=== PATIENT | female | born 2005 | race Caucasian/White ===

== ENCOUNTER → 2023-04-29 | Emergency (ER) | payer OTHER ==
--- OUTSIDE RECORDS SUMMARY | 2023-04-29 14:44 | XMS REPORT | Continuity of Care Document ---
Author Name Unknown Address [address] [facility] [address] [place] [address] [facility] thconnect Address [address] [facility] [place] [address] Care Team Providers Care Twisting Operator Name Role Phone PCP, PATIENT DOES NOT HAVE A Primary Care Physic law Unavailable Paris Lewis Attending Clinician Unavailable STEVE LABOY Attending Clinician Unavailable PROVIDERRODRICK Attending Clinician Unavailable LAB59 Attending Clinician Unavailable MANSI BARLOW Attending Clinician Unavailable CHARU DOMINGUEZ Attending Clinician Unavailab TRISH Stroud Attending Clinician Unavaila ble Lachelle Jack Attending Clinician + LACHELLE ALVAREZ Attending Clinician Unavail able Madison Leiva Attending Clinician TONY HOGUE Attending Clinician Unavailable [facility], [facility] Ashley sadia Chavezman PNP, Tony Attending Clinician [phone] Doctor Unassigned, [place] Attending Clinician U navailable Mehreen Attending Clinician ANIYA Velásquez Attending Clinician Unavail able Aniya Santiago MD Attending Clinician [phone] Lab, Adc Fam Pob I Attending Clinician Unavailab Summer Ferraro Attending Clinician [phone] Mehreen Admitting Clinician Unavailcheyenne e Payers Payer Name Policy Type Policy Number Effective Date Expiration Date Source [facility] [employer] EMT 9 [id number] 2020 00:00:00 [employer] COMMERCIAL OUT OF NETWORK [id number] 2020 00:00:00 [employer] C1 [id number] 2019 00:00:00 [facility] Problems Condition Name Condition Details Condition Category Status Onset Date Resolution Date Last Treatment Date Treating Clinician Comments Source Family history of breast cancer Family history of breast cancer Disease Active 10-02 00:00: 00 [facility] BMI 38.0-38.9, adult BMI 38.0-38.9, adult Disease Active 10-02 00:00: 00 [facility] Encounter for other contracept vernon management Encounter for other contracept vernon management Disease Active 10-02 00:00: 00 [facility] 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 Disease Active 2019-03 00:00: 00 [facility] Allergies, Adverse Reactions, Alerts Allergy Name Allergy Type Status Severity Reaction(s) Onset Date Inactive Date Treating Clinician Comments Source NO KNOWN ALLERGIE S Drug Class Active [facility] Social History Social Habit Start Date Stop Date Quantity Comments Source Sexual orientation Omid Gould - External Gender identity Mindi Gould - External History of Tobacco Use Never Smoker [facility] Alcohol intake 2023-04-23 00:00:00 2023-04-23 00:00:00 Ex-drinker (finding) Laurie Gould - External Tobacco use and exposure 2022-11-30 00:00:00 2022-11-30 00:00:00 Smokeless tobacco non-user Laurie Gould - External History of Social function 2022-11-30 00:00:00 2022-11-30 00:00:00 Laurie Gould - External Exposure to SARS-CoV-2 (event) 2021-12-23 00:00:00 2022-01-02 13:54:00 Not sure [facility] Sex Assigned At 2005 00:00:00 2005 00:00:00 Laurie Gould - External Smoking Status Start Date Stop Date Source Never smoked tobacco Laurie Gould - External Medications Ordered Medication Name Filled Medication Name Start Date Stop Date Current Medication? Ordering Clinician Indication Dosage Frequency Signature (SIG) Comments Components Source Drospirenon e-Ethinyl Estradiol 3-0.02 MG oral Tablet 04-23 00:00: 00 Yes [id number] 1{tbl} Take 1 tablet by mouth daily. Laurie Gould - Externa l ondansetron (ZOFRAN (PF)) injection 4 mg 2022-03 09:45: 00 03-04 09:33 :00 No 4mg 4 mg, Slow IV Push, ONCE, 1 dose, On Sat03/04/23 at 0345, RAZ [facility] NaCl 0.9% (NS) IV infusion 1,000 mL 2022-03 09:00: 00 Yes 1000mL at 999 mL/hr, IV Infusion, CONTINUOUS , Starting on Sat03/04/23 at 0300, Until Discontinu ed, Routine [facility] cefTRIAXone (ROCEPHIN) 1,000 mg in NaCl 0.9% (NS) 100 mL MINI-BAG 2022-03 08:30: 00 03-04 09:03 :00 No 1000mg 1,000 mg, IV Piggyback, ONCE, 1 dose, On Sat03/04/23 at 0230, Administer over 30 Minutes, 100 mL
Reas on for Anti-Infec tive: Documented Infection< br>Documen radha Infection Site: Urine
D uration of Therapy: 10 days [facility] ondansetron (ZOFRAN (PF)) injection 4 mg 2022-03 08:00: 00 03-04 07:59 :00 No 4mg 4 mg, Slow IV Push, ONCE, 1 dose, On 03/04/23 at 0200, RAZ [facility] ondansetron 4 mg disintegrat ing tablet 2022-03 00:00: 00 Yes [id number] 4mg Take 1 tablet by mouth every 8 (eight) hours as needed for Nausea and Vomiting (N/V) for up to 15 doses. [facility] ciprofloxac in HCl 500 mg tablet 2022-03 00:00: 00 Yes [id number] 500mg Take 1 tablet by mouth in the morning and 1 tablet in the evening. [facility] benzonatate 100 mg capsule 2022-03 00:00: 00 Yes 100mg Take 1 capsule by mouth every 8 (eight) hours as needed. [facility] Benzonatate (Tessalon Perles) 100 MG oral Capsule 2022-03 00:00: 00 Yes [id number] 100mg [id number] 3D Take 1 capsule (100 mg total) by mouth 3 times daily as needed for cough. Laurie pathak Benzonatate (Tessalon Perles) 100 MG oral Capsule 2022-03 00:00: 00 04-23 00:00 :00 No [id number] 100mg Q.[id number] 3D Take 1 capsule (100 mg total) by mouth 3 times daily as needed for cough. Laurie pathak Azithromyci n 250 MG oral Tablet 2022-03 00:00: 00 01-31 05:59 :00 No [id number] Take 2 tablets by mouth on day 1 then 1 tablet by mouth daily for 4 days thereafter .. Laurie pathak drospirenon e-ethinyl estradioL 3-0.02 mg per tablet 11-30 00:00: 00 Yes 1{tbl} Take 1 tablet by mouth every morning. [facility] Drospirenon e-Ethinyl Estradiol 3-0.02 MG oral Tablet 11-30 00:00: 00 Yes [id number] 1{tbl} Take 1 tablet by mouth daily. Laurie Graysondorysta Ely Ducreji pathak Drospirenon e-Ethinyl Estradiol 3-0.02 MG oral Tablet 11-30 00:00: 00 Yes [id number] 1{tbl} Take 1 tablet by mouth daily. Laurie Graysondorysta Ely Ducreji pathak Drospirenon e-Ethinyl Estradiol 3-0.02 MG oral Tablet 11-30 00:00: 00 04-23 00:00 :00 No [id number] 1{tbl} Take 1 tablet by mouth daily. Laurie Luis Fernando pathak norgestimat e-ethinyl estradioL 0.18/0.215/ 0.25 mg-35 mcg (28) tablet 09-18 00:00: 00 Yes [id number] TAKE 1 TABLET BY MOUTH EVERY DAY IN THE MORNING [facility] norgestimat e-ethinyl estradioL 0.18/0.215/ 0.25 mg-35 mcg (28) tablet 09-18 00:00: 00 Yes [id number] TAKE 1 TABLET BY MOUTH EVERY DAY IN THE MORNING [facility] norgestimat e-ethinyl estradioL (TRI-SPRINT EC) 0.18/0.215/ 0.25 mg-35 mcg (28) tablet 09-18 00:00: 00 Yes [id number] 1{tbl} Take 1 tablet by mouth in the morning. [facility] norgestimat e-ethinyl estradioL 0.18/0.215/ 0.25 mg-35 mcg (28) tablet 09-18 00:00: 00 Yes [id number] TAKE 1 TABLET BY MOUTH EVERY DAY IN THE MORNING [facility] norgestimat e-ethinyl estradioL (TRI-SPRINT EC) 0.18/0.215/ 0.25 mg-35 mcg (28) tablet 09-18 00:00: 00 Yes [id number] 1{tbl} Take 1 tablet by mouth in the morning. [facility] norgestimat e-ethinyl estradioL 0.18/0.215/ 0.25 mg-35 mcg (28) tablet 09-18 00:00: 00 03-04 00:00 :00 No [id number] TAKE 1 TABLET BY MOUTH EVERY DAY IN THE MORNING [facility] norgestimat e-ethinyl estradioL (TRI-SPRINT EC) 0.18/0.215/ 0.25 mg-35 mcg (28) tablet 09-18 00:00: 00 03-04 00:00 :00 No [id number] 1{tbl} Take 1 tablet by mouth in the morning. [facility] norgestimat e-ethinyl estradioL (TRI-SPRINT EC) 0.18/0.215/ 0.25 mg-35 mcg (28) tablet 2021-03 00:00: 00 Yes [id number] 1{tbl} Take 1 tablet by mouth in the morning. [facility] norgestimat e-ethinyl estradioL (TRI-SPRINT EC) 0.18/0.215/ 0.25 mg-35 mcg (28) tablet 2021-03 00:00: 00 Yes [id number] 1{tbl} Take 1 tablet by mouth in the morning. [facility] norgestimat e-ethinyl estradioL (TRI-SPRINT EC) 0.18/0.215/ 0.25 mg-35 mcg (28) tablet 2021-03 00:00: 00 Yes [id number] 1{tbl} Take 1 tablet by mouth in the morning. [facility] norgestimat e-ethinyl estradioL (TRI-SPRINT EC) 0.18/0.215/ 0.25 mg-35 mcg (28) tablet 2021-03 00:00: 00 03-04 00:00 :00 No [id number] 1{tbl} Take 1 tablet by mouth in the morning. [facility] Norgestimat e-Ethinyl Estradiol 0.18/0.215/ 0.25 MG-35 MCG oral Tablet 2021-03 00:00: 00 11-30 00:00 :00 No 1{tbl} Take 1 tablet by mouth daily. Laurie pathak norgestimat e-ethinyl estradioL (TRI-SPRINT EC) 0.18/0.215/ 0.25 mg-35 mcg (28) tablet 10-02 00:00: 00 Yes [id number] 1{tbl} Take 1 tablet by mouth in the morning. [facility] norgestimat e-ethinyl estradioL (TRI-SPRINT EC) 0.18/0.215/ 0.25 mg-35 mcg (28) tablet 10-02 00:00: 00 Yes [id number] 1{tbl} Take 1 tablet by mouth in the morning. [facility] norgestimat e-ethinyl estradioL (TRI-SPRINT EC) 0.18/0.215/ 0.25 mg-35 mcg (28) tablet 10-02 00:00: 00 01-02 00:00 :00 No [id number] 1{tbl} Take 1 tablet by mouth in the morning. [facility] norgestimat e-ethinyl estradioL (TRI-SPRINT EC) 0.18/0.215/ 0.25 mg-35 mcg (28) tablet 10-02 00:00: 00 01-02 00:00 :00 No [id number] 1{tbl} Take 1 tablet by mouth in the morning. [facility] bromphenira mine-pseudo ephedrine-D M (BROMFED DM) 2-30-10 mg/5 mL syrup 05-30 00:00: 00 10-02 00:00 :00 No [id number] 10mL Take 10 mL by mouth 4 (four) times daily as needed for Cold symptoms. [facility] bromphenira mine-pseudo ephedrine-D M (BROMFED DM) 2-30-10 mg/5 mL syrup 08 00:00: 00 10-02 00:00 :00 No [id number] 10mL Take 10 mL by mouth 4 (four) times daily as needed for Cold symptoms. [facility] No Known Medications No Known Medications No [facility] No Known Medications No Known Medications No [facility] Vital Signs Vital Name Observation Time Observation Value Comments S ource Systolic blood pressure 2023-04-23 20:04:00 118 mm[Hg] Laurie Seybo ld - External Diastolic blood pressure 2023-04-23 20:04:00 65 mm[Hg] Laurie Graysonybo ld - External Heart rate 2023-04-23 20:04:00 77 /min Kel y Seybold - External Body temperature 2023-04-23 20:04:00 36.78 Ana Laurie Graysonybold - External Respiratory rate 2023-04-23 20:04:00 20 /min Laurie Graysonybold - External Body height 2023-04-23 20:04:00 175.3 cm Mindi pepper Seybold - External Body weight 2023-04-23 20:04:00 119.75 kg Mindi ey Seybold - External BMI 2023-04-23 20:04:00 38.99 kg/m2 Mindi ey Seybold - External Heart rate 2023-03-04 09:00:00 77 /min [facility] Respiratory rate 2023-03-04 09:00:00 27 /min [facility] Oxygen saturation in Arterial blood by Pulse oximetry 2023-03-04 09:00:00 97 /min [facility] Systolic blood pressure 2023-03-04 07:45:00 140 mm[Hg] [facility] Diastolic blood pressure 2023-03-04 07:45:00 73 mm[Hg] [facility] Body temperature 2023-03-04 07:45:00 36.78 Ana [facility] Body height 2023-03-04 07:45:00 172.7 cm [facility] Body weight 2023-03-04 07:45:00 117.935 kg [facility] BMI 2023-03-04 07:45:00 39.53 kg/m2 [facility] Systolic blood pressure 2023-01-25 13:50:00 132 mm[Hg] Laurie Graysonybo ld - External Diastolic blood pressure 2023-01-25 13:50:00 74 mm[Hg] Laurie Graysonybo ld - External Heart rate 2023-01-25 13:50:00 104 /min Kelse y Seybold - External Body temperature 2023-01-25 13:50:00 36.61 Ana Laurie Seybold - External Respiratory rate 2023-01-25 13:50:00 15 /min Laurie Seybold - External Body height 2023-01-25 13:50:00 172.7 cm Mindi ey Seybold - External Body weight 2023-01-25 13:50:00 120.657 kg Mindi ey Seybold - External BMI 2023-01-25 13:50:00 40.45 kg/m2 Mindi ey Seybold - External Body weight 2022-11-30 14:33:00 117.482 kg Mindi ey Seybold - External BMI 2022-11-30 14:33:00 39.38 kg/m2 Mindi ey Seybold - External Systolic blood pressure 2022-11-30 14:33:00 110 mm[Hg] Laurie Seybo ld - External Diastolic blood pressure 2022-11-30 14:33:00 60 mm[Hg] Laurie Graysonybo ld - External Heart rate 2022-11-30 14:33:00 64 /min Junse y Seybold - External Body temperature 2022-11-30 14:33:00 36.72 Ana Laurie Seybold - External Respiratory rate 2022-11-30 14:33:00 16 /min Laurie Seybold - External Body height 2022-11-30 14:33:00 172.7 cm Mindi ey Seybold - External Systolic blood pressure 2022-01-02 18:55:00 144 mm[Hg] [facility] Diastolic blood pressure 2022-01-02 18:55:00 91 mm[Hg] [facility] Heart rate 2022-01-02 18:55:00 112 /min [facility] Body temperature 2022-01-02 18:54:00 36.28 Ana [facility] Respiratory rate 2022-01-02 18:54:00 18 /min [facility] Body height 2022-01-02 18:54:00 172.7 cm [facility] Body weight 2022-01-02 18:54:00 114.477 kg [facility] BMI 2022-01-02 18:54:00 38.37 kg/m2 [facility] Body mass index (BMI) [Percentile] Per age and sex 2022-01-02 18:54:00 98.43 % [facility] Systolic blood pressure 2021-10-02 18:45:00 130 mm[Hg] [facility] Diastolic blood pressure 2021-10-02 18:45:00 67 mm[Hg] [facility] Heart rate 2021-10-02 18:45:00 81 /min [facility] Body temperature 2021-10-02 18:45:00 36.89 Ana [facility] Respiratory rate 2021-10-02 18:45:00 18 /min [facility] Body height 2021-10-02 18:45:00 172.7 cm [facility] Body weight 2021-10-02 18:45:00 114.987 kg [facility] BMI 2021-10-02 18:45:00 38.54 kg/m2 [facility] Body mass index (BMI) [Percentile] Per age and sex 2021-10-02 18:45:00 98.53 % [facility] height 2020-01-15 15:40:00 68 [in_i] Commo n [facility] weight 2020-01-15 15:40:00 216.0 [lb_av] Co mmon [facility] temperature 2020-01-15 15:40:00 97.3 [degF] Com mon [facility] bmi 2020-01-15 15:40:00 32.84 kg/m2 Comm on [facility] oximetry 2020-01-15 15:40:00 99 % Commo n [facility] respiratory rate 2020-01-15 15:40:00 19 /min Common [facility] blood pressure systolic 2020-01-15 15:40:00 124 mm[Hg] Common [facility] blood pressure diastolic 2020-01-15 15:40:00 69 mm[Hg] [facility] height 2019-12-21 10:00:00 68 [in_i] Commo n [facility] weight 2019-12-21 10:00:00 219.2 [lb_av] Co mmon [facility] temperature 2019-12-21 10:00:00 96.3 [degF] Com mon [facility] bmi 2019-12-21 10:00:00 33.33 kg/m2 Comm on [facility] oximetry 2019-12-21 10:00:00 99 % Commo n [facility] respiratory rate 2019-12-21 10:00:00 19 /min [facility] blood pressure systolic 2019-12-21 10:00:00 134 mm[Hg] [facility] blood pressure diastolic 2019-12-21 10:00:00 61 mm[Hg] [facility] Procedures Procedure Date / Time Performed Performing Clinicia n Source COMP. METABOLIC PANEL (25895) 2023-03-04 08:26:00 Mansi Barlow [facility] RAPID STREP SCREEN FOR GROUP A 2023-03-04 08:00:00 Mansi Barlow [facility] RAPID INFLUENZA A/B 2023-03-04 08:00:00 Nancy Barlow [facility] COVID-19 (ID NOW RAPID TESTING) 2023-03-04 08:00:00 Mansi Barlow [facility] CBC WITH DIFF 2023-03-04 07:59:00 Mansi Barlow [facility] URIN[facility]YSIS 2023-03-04 07[facility]59[facility] 2023-03-04 07:57:00 Nancy Barlow [facility] NOTICE OF PRIVACY PRACTICES 2023-03-04 07:42:05 Doctor Unassigned, [place] [facility] CONSENT/REFUSAL FOR DIAGNOSIS AND TREATMENT 2023-03-04 07:40:52 Doctor Unassigned, [place] [facility] POCT TEST 2022-01-02 21:34:00 Bob Alvarez [facility] POCT TEST 2021-10-02 18:51:00 Madison Pike [facility] Encounters Start Date/Time End Date/Time Encounter Type Admission Type Attending [facility] Care Department Encounter ID Source 2021-04-19 12:35:28 Outpatient Debbie, Pairs STLMLC STLC [id number] [facility] 2021-04-19 12:03:36 Outpatient Debbie, [place] STLMLC STLMLC [id number] [facility] 2021-04-19 12:03:13 Outpatient Debbie, [place] STLMLC STLMLC [id number] [facility] 2021-04-19 12:02:43 Outpatient Debbie, [place] STLMLC STLMLC [id number] [facility] 2021-04-19 12:00:57 Outpatient Debbie, [place] STLMLC STLMLC [id number] [facility] 2021-04-19 11:59:50 Outpatient Debbie, [place] STLMLC STLMLC [id number] [facility] 2021-04-19 11:49:30 Outpatient Debbie, [place] [facility]LMLC STLC [id number] [facility] 2023-11-29 11:00:00 2023-11-29 11:00:00 Outpatient STEVE LABOY [id number] Laurie Gould 2023-04-29 14:30:00 2023-04-29 14:30:00 Outpatient RODRICK KULKARNI [id number] Laurie [facility] 2023-04-29 14:25:00 2023-04-29 14:25:00 Outpatient PROVIDER, RODRICK SCHWAB [id number] Laurie [facility] 2023-04-23 15:00:00 2023-04-23 15:00:00 Outpatient LAB59 LAURIE SCHWAB [id number] Laurie [facility] 2023-04-23 14:30:00 2023-04-23 14:30:00 Outpatient STEVE LABOY [id number] Laurie [facility] 2023-03-04 01:46:00 2023-03-04 03:41:00 Emergency X MANSI BARLOW [facility] ERT [id number] [facility] 2023-03-04 01:46:00 2023-03-04 03:41:00 Emergency Maryann Barlowherine [facility] .2.840.114 350.1.13.10 4.2.7.2.686 [id number] [facility] 2023-01-28 00:00:00 2023-01-28 00:00:00 Outpatient CHARU DOMINGUEZ [id number] [facility] 2023-01-25 09:00:00 2023-01-25 09:00:00 Outpatient CHARU DOMINGUEZ [id number] [facility] 2022-12-26 13:00:00 2022-12-26 13:00:00 Outpatient TRISH FAULKNER [facility] [id number] [facility] 2022-11-30 09:30:00 2022-11-30 09:30:00 Outpatient STEVE LABOY [id number] [facility] 2022-10-16 00:00:00 2022-10-16 00:00:00 Refill Lachelle Alvarez [facility] .2.840.114 350.1.13.10 4.2.7.2.686 [id number] [facility] 2022-10-02 09:30:00 2022-10-02 09:30:00 Outpatient R LACHELLE ALVAREZ [facility] [id number] [facility] 2022-04-17 14:36:44 2022-04-17 14:36:44 Outpatient [facility] [id number] Edmond Bell 2022-01-02 13:45:00 2022-01-02 14:21:18 Outpatient R LACHELLE ALVAREZ [facility] [id number] [facility] 2022-01-02 13:45:00 2022-01-02 14:21:18 Office Visit Lachelle Alvarez [facility] & CHILD [facility] 1..840.114 350.1.13.10 4.2.7.2.686 [id number] [facility] 2021-12-23 00:00:00 2021-12-23 00:00:00 Madison eRne [facility]ILD [facility] 1..840.114 350.1.13.10 4.2.7.2.686 [id number] [facility] 2021-10-02 13:30:00 2021-10-02 14:42:16 Outpatient R TONY HOGUE [facility] [id number] [facility] 2021-10-02 13:30:00 2021-10-02 14:42:16 Office Visit Provider, Tato-Rmchp Tony Hawkins [facility]NAL [facility] CHILD [facility] 1..840.114 350.1.13.10 4.2.7.2.686 [id number] [facility] 2021-10-02 13:30:00 2021-10-02 14:42:16 Outpatient R TONY HOGUE [facility] [id number] [facility] 2021-10-02 00:00:00 2021-10-02 00:00:00 Orders Only Doctor Unassigned, [place] [facility] 1.2.840.114 350.1.13.10 4.2.7.2.686 [id number] [facility] 2021-08-30 02:21:00 2021-08-30 02:21:00 Outpatient JUDD_Joshua_Greg Carmona AO AO [id number] [facility] 2021-05-30 13:40:00 2021-05-30 14:02:34 Outpatient R ANIYA SANTIAGO [facility] [id number] [facility] 2021-05-30 13:40:00 2021-05-30 14:02:34 Office Visit Aniya Santiago [facility] 1.2840.114 350.1.13.10 4.2.7.2.686 [id number] [facility] 2021-05-30 00:00:00 2021-05-30 00:00:00 Orders Only Doctor Unassigned, [place] [facility] 1.2.840.114 350.1.13.10 4.2.7.2.686 [id number] [facility] 2021-05-30 00:00:00 2021-05-30 00:00:00 Letter (Out) Aniya Santiago [facility] 1.2840.114 350.1.13.10 4.2.7.2.686 [id number] [facility] 2020-02-02 00:00:00 2020-02-02 00:00:00 [facility] [id number] 2020-01-15 00:00:00 2020-01-15 00:00:00 OFFICE VISIT EST PT [facility] [id number] [facility] 2019-12-31 00:00:00 2019-12-31 00:00:00 (TEL) [facility] [id number] [facility] 2019-12-23 00:00:00 2019-12-23 00:00:00 (TEL) ST[facility]C [facility] [id number] [facility] 2019-12-21 00:00:00 2019-12-21 00:00:00 OFFICE VISIT NEW PT LEVEL 3 [facility] ST[facility] [id number] [facility] 2019-09-25 10:40:00 2019-09-25 10:40:00 Outpatient R [facility] [id number] [facility] 2019-09-25 10:12:37 2019-09-25 10:32:37 Laboratory Only Lab, [facility] Fam Pob I MariyaSummer [facility] [address] 1.114 350.1.13.10 4.2.7.2.686 [id number] [facility] 2019-09-25 10:12:37 2019-09-25 10:32:37 Laboratory Only Lab, Adc Fam Pob I [facility] [address] 1.0.114 350.1.13.10 4.2.7.2.686 [id number] Results Test Description Test Time Test Comments Results Result Co mments Source [facility] WITH [id number] 08:42:11* Test Item Value Reference Range Interpretation Comme nts WBC (test code = 6690-2) 27.53 See_Comment H [Automated message] The system which generated this result transmitted reference range: 4.30 - 11.10 10*3/?L. The reference range was not used to interpret this result as normal/abnormal. RBC (test code = 789-8) 5.84 See_Comment H [Automated message] The system which generated this result transmitted reference range: 3.93 - 5.25 10*6/?L. The reference range was not used to interpret this result as normal/abnormal. HGB (test code = 718-7) 16.1 g/dL 11.6-15.0 H HCT (test code = 4544-3) 48.7 % 35.7-45.2 H MCV (test code = 787-2) 83.4 fL 80.6-95.5 MCH (test code = 785-6) 27.6 pg 25.9-32.8 MCHC (test code = 786-4) 33.1 g/dL 31.6-35.1 RDW-SD (test code = 06798-8) 40.1 fL 39.0-49.9 RDW-CV (test code = 788-0) 13.3 % 12.0-15.5 PLT (test code = 777-3) 331 See_Comment [Automated message] The system which generated this result transmitted reference range: 166 - 358 10*3/?L. The reference range was not used to interpret this result as normal/abnormal. MPV (test code = 57417-0) 10.9 fL 9.5-12.9 NRBC/100 WBC (test code = 8660858153) 0.0 See_Comment [Automated message] The system which generated this result transmitted reference range: 0.0 - 10.0 /100 WBCs. The reference range was not used to interpret this result as normal/abnormal. NRBC x10^3 (test code = 2409921147) See_Comment [Automated message] The system which generated this result transmitted reference range: 10*3/?L. The reference range was not used to interpret this result as normal/abnormal. GRAN MAT (NEUT) % (test code = 770-8) 90.0 % IMM GRAN % (test code = 4748949901) 0.70 % LYMPH % (test code = 736-9) 2.9 % MONO % (test code = 5905-5) 6.0 % EOS % (test code = 713-8) 0.1 % BASO % (test code = 706-2) 0.3 % GRAN MAT x10^3(ANC) (test code = 5011930235) 24.76 10*3/uL 1.88-7.09 H IMM GRAN x10^3 (test code = 4658317811) 0.20 10*3/uL 0.00-0.06 H LYMPH x10^3 (test code = 731-0) 0.80 10*3/uL 1.32-3.29 L MONO x10^3 (test code = 742-7) 1.65 10*3/uL 0.33-0.92 H EOS x10^3 (test code = 711-2) 0.04 10*3/uL 0.03-0.39 BASO x10^3 (test code = 704-7) 0.08 10*3/uL 0.01-0.07 H BANDS (test code = 2010633272) Increased A Lab Interpretation (test code = 26054-0) Abnormal [facility] [id number] 07:57:00* Test Item Value Reference Range Interpretation Comme nts POCT PREG (test code = 1605) Negative On board controls acceptable with C Line (test code = 3574) Yes POCT PREG LOT # (test code = 3575) [id number] POCT PREG TEST DATE ( test code = 3576) 06/02/2024 Lab Interpretation (test cod e = 58453-0) Normal [facility] [id number] 21:34:00* Test Item Value Reference Range Interpretation Comme nts POCT PREG (test code = 1605) Negative On board controls acceptable with C Line (test code = 3574) Yes POCT PREG LOT # (test code = 3575) POCT PREG TEST DATE ( test code = 3576) [facility] [id number] 21:34:00* Test Item Value Reference Range Interpretation Comme nts POCT PREG (test code = 1605) Negative On board controls acceptable with C Line (test code = 3574) Yes POCT PREG LOT # (test code = 3575) POCT PREG TEST DATE ( test code = 3576) [facility] [id number] 18:51:00* Test Item Value Reference Range Interpretation Comme nts POCT PREG (test code = 1605) Negative On board controls acceptable with C Line (test code = 3574) Yes POCT PREG LOT # (test code = 3575) POCT PREG TEST DATE ( test code = 3576) [facility] [id number] 18:51:00* Test Item Value Reference Range Interpretation Comme nts POCT PREG (test code = 1605) Negative On board controls acceptable with C Line (test code = 3574) Yes POCT PREG LOT # (test code = 3575) POCT PREG TEST DATE ( test code = 3576) [facility] Notes Date/Time Note Provider Source 2023-04-23 13:59:56 5GRZUse5YcOHjjtF9D3T d9bGqUyCEYB23LyIP XkCgPfahykBS1oemQV0ES3w7AuR0212-46-54 T13:59:56 Chief ComplaintPatient [place] [address]-9Xjjed TowlYR4603-49-21E44:00:00Nurse NoteTXT1.2.840.877627.1.13.131.2.7.2. [id number] for patient xwye29425-1Jyxhd NoteLNNARRATIVEFormatted C-CDA narrative [facility] [facility] [id number] 2241-17-95H50:00:001.2.840.597180.1.7 2.3.15|1.2.840.577935.1.13.131.2.7.2. [id number] [facility] 2022-11-30 09:31:22 yGupeNoWgT4CDMaJs5rd 98MCAlG1zBQutqEza TAe9+o5tHtitUiXArOSYBvM9VLA9035-19-37 T09:31:22 Chief Complaint Patient presents with Well Woman Exam [place] [address]-6Ivuym GpncEQ3892-02-55Q90:00:12Nurse NoteTXT1.2.840.052388.1.13.131.2.7.2. [id number] for patient ynjn21883-9Dscqa NoteLNAscension [facility] [facility].[id number] 9923-23-23Z95:00:121.2.840.554019.1.7 2.3.15|1.2.840.117067.1.13.131.2.7.2. [id number] [facility]"
--- NOTE | 2023-04-29 15:46 | EDPHYS ---
Physician Documentation [facility] Name: Taryn Azul Age: 17 yrs Sex: Female : 2005 Arrival Date: 04/29/2023 Time: 14:40 Bed Treatment Private MD: ED Physician Stevie Isbell HPI: 04/29 14:53 This 17 yrs old Female presents to ER via Unassigned with complaints of Test. ms3 14:53 17-year-old female with no past medical history presents to the emergency for being 5 ms3 days late on her cycle. Patient states she took 2 tests at home with positive faint lines. Patient went to a free clinic and had a negative test. Patient denies pain. Patient endorses fatigue. 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 - Social history:: Smoking status: Patient denies any tobacco usage or history of. ROS: 14:53 Cardiovascular: Negative for chest pain, and palpitations. Respiratory: Negative for ms3 shortness of breath, cough, wheezing, and pleuritic chest pain, Abdomen/GI: Negative for abdominal pain, nausea, vomiting, diarrhea, and constipation, MS/Extremity: Negative for injury and deformity, Skin: Negative for injury, rash, and discoloration, 14:53 Constitutional: Positive for fatigue, 14:53 All other systems are negative, Exam: 14:53 Constitutional: This is a well developed, well nourished patient who is awake, alert, ms3 and in no acute distress. Head/Face: Normocephalic, atraumatic. Chest/axilla: Normal chest wall appearance and motion. Nontender with no deformity. Cardiovascular: Regular rate and rhythm with a normal S1 and S2. No gallops, murmurs, or rubs. Normal PMI, no JVD. No pulse deficits. Respiratory: Lungs have equal breath sounds bilaterally, clear to auscultation and percussion. No rales, rhonchi or wheezes noted. No increased work of breathing, no retractions or nasal flaring. Abdomen/GI: Soft, non-tender, with normal bowel sounds. No distension or tympany. No guarding or rebound. No evidence of tenderness throughout. Skin: Warm, dry with normal turgor. Normal color with no rashes, no lesions, and no evidence of cellulitis. MS/ Extremity: Pulses equal, no cyanosis. Neurovascular intact. Full, normal range of motion. Vital Signs: 14:49 BP 130 / 70; Pulse 103; Resp 18; Temp 98.2; Pulse Ox 98% ; ko1 MDM: 14:53 Differential Diagnosis . ms3 15:10 Patient medically screened. ms3 15:45 Data reviewed: vital signs, nurses notes, lab test result(s), and as a result, I will ms3 discharge patient. Counseling: I had a detailed discussion with the patient and/or guardian regarding the historical points, exam findings, and any diagnostic results supporting the discharge/admit diagnosis, lab results, the need for outpatient follow up, to return to the emergency department if symptoms worsen or persist or if there are any questions or concerns that arise at home. Special discussion: I discussed with the patient/guardian in detail that at this point there is no indication for admission to the hospital. It is understood, however, that if the symptoms persist or worsen the patient needs to return immediately for re-evaluation. ED course: Discussed negative serum test with patient. Discussed hCG levels may be too low for detection at this time. Recommended patient take urine test at home in 1 week. Patient understands agrees with plan. All questions were answered. Return precautions discussed include worsening symptoms, or any other concerns. 04/29 14:53 Order name: Test, Serum; Complete Time: 15:45 ms3 Administered Medications: No medications were administered Disposition Summary: 04/29/23 15:45 Discharge Ordered Notes: Location: Home ms3 Condition: Stable ms3 Diagnosis - Amenorrhea, unspecified ms3 Forms: - Medication Reconciliation Form ms3 - Thank You Letter ms3 - Antibiotic Education ms3 - Prescription Opioid Use ms3 - Patient Portal Instructions ms3 - Leadership Thank You Letter ms3 Signatures: [facility] Stevie Isbell DO DO ms3 Ava Cameron RN RN ko1
--- NOTE | 2023-04-29 15:46 | ER ---
Nurse's Notes [facility] Name: Taryn Azul Age: 17 yrs Sex: Female : 2005 Arrival Date: 04/29/2023 Time: 14:40 Bed Treatment Private MD: Diagnosis: Amenorrhea, unspecified Presentation: 04/29 14:49 Chief complaint: Patient states: 5 days late on menstrual cycle, had 2 home preg tests ko1 which showed a faint line and a urine done [facility] which was negative. Coronavirus screen: At this time, the client does not indicate any symptoms associated with coronavirus-19. Ebola Screen: No symptoms or risks identified at this time. Initial Sepsis Screen: Does the patient meet any 2 criteria? No. Patient's initial sepsis screen is negative. Does the patient have a suspected source of infection? No. Patient's initial sepsis screen is negative. Risk Assessment: Do you want to hurt yourself or someone else? Patient reports no desire to harm self or others. Onset of symptoms is unknown. 14:49 Method Of Arrival: Ambulatory ko1 14:49 Acuity: ROMERO 5 ko1 Triage Assessment: 14:55 General: Appears in no apparent distress. Behavior is calm, cooperative, appropriate ko1 for age. Pain: Denies pain. 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 - Social history:: Smoking status: Patient denies any tobacco usage or history of. Screenin:04 [facility] ED Fall Risk Assessment (Adult) History of falling in the last 3 months, mb9 including since admission No falls in past 3 months (0 pts) Confusion or Disorientation No (0 pts) Intoxicated or Sedated No (0 pts) Impaired Gait No (0 pts) Mobility Assist Device Used No (0 pt) Altered Elimination No (0 pt) Score/Fall Risk Level 0 - 2 = Low Risk Oriented to surroundings, Maintained a safe environment, Educated pt \T\ family on fall prevention, incl call for assistance when getting out of bed. Abuse screen: Denies threats or abuse. Nutritional screening: No deficits noted. Tuberculosis screening: No symptoms or risk factors identified. Assessment: 15:03 General: Appears in no apparent distress. Behavior is calm, cooperative. Pain: Denies mb9 pain. Neuro: [place] Agitation-Sedation Scale (RASS): 0 - Alert and Calm Level of Consciousness is awake, alert, obeys commands, Oriented to person, place, time, situation, Appropriate for age. Cardiovascular: Patient's skin is warm and dry. Respiratory: Airway is patent Respiratory effort is even, unlabored, Respiratory pattern is regular, symmetrical. GI: No signs and/or symptoms were reported involving the gastrointestinal system. : No signs and/or symptoms were reported regarding the genitourinary system. EENT: No signs and/or symptoms were reported regarding the EENT system. Derm: Skin is pink, warm \T\ dry. Musculoskeletal: Range of motion: intact in all extremities. Vital Signs: 14:49 BP 130 / 70; Pulse 103; Resp 18; Temp 98.2; Pulse Ox 98% ; ko1 ED Course: 14:41 Patient arrived in ED. rg4 14:44 Stevie Isbell DO is Attending Physician. ms3 14:55 Triage completed. ko1 14:55 Arm band placed on right wrist. Patient placed in waiting room, Patient notified of ko1 wait time. 15:03 Georgiana Daniel, BETINA is Primary Nurse. mb9 15:03 Test, Serum Sent. mb9 15:04 Placed in gown. Bed in low position. Call light in reach. Side rails up X 1. Client mb9 placed on continuous cardiac and pulse oximetry monitoring. NIBP monitoring applied. 15:04 No provider procedures requiring assistance completed. Patient did not have IV access mb9 during this emergency room visit. Administered Medications: No medications were administered Medication: 15:04 VIS not applicable for this client. mb9 Outcome: 15:45 Discharge ordered by . ms3 15:53 Discharged to home ambulatory, mb9 15:53 Condition: stable 15:53 Discharge instructions given to patient, Instructed on discharge instructions, follow up and referral plans. Demonstrated understanding of instructions, follow-up care, 15:53 Patient left the ED. mb9 Signatures: Kailee De Jesus rg4 Stevie Isbell DO DO ms3 Ava Cameron RN RN ko1 Breneman, Olamide, RN RN mb9
[2023-04-30 00:46] VITALS: BP 130/70; TEMP 98.2; O2SAT 98
== END ==
LOC: ER 14:40
DX: N91.2 Amenorrhea, unspecified (principal); R53.83 Other fatigue
CPT/HCPCS: 36415; 84703

== ENCOUNTER 2023-08-27 11:09 | Emergency (ER) | payer OTHER ==
--- OUTSIDE RECORDS SUMMARY | 2023-08-27 11:12 | XMS REPORT | Continuity of Care Document ---
Author Name Unknown Address [address] [facility] [address] [place] [address] [facility] thconnect Address [address] [facility] [place] [address] Care Team Providers Care Manager Unix Name Role Phone PCP, PATIENT DOES NOT HAVE A Primary Care Physic law Unavailable Paris Lewis Attending Clinician Unavailable STEVE LABOY Attending Clinician Unavailable KATHI MARCH Attending Clinician Unavailable PROVIDERRODRICK Attending Clinician Unavailable LAB59 Attending Clinician Unavailable MANSI BRALOW Attending Clinician Unavailable CHARU DOMINGUEZ Attending Clinician Unavailab TRISH Stroud Attending Clinician Unavaila Lachelle Hanson Attending Clinician + LACHELLE ALVAREZ Attending Clinician Unavail able Madison Leiva Attending Clinician [phone] TONY HOGUE Attending Clinician Unavailable Provider, Tato-Rmchirish Temp Attending Clinician Ashley CUTLER, Tony Attending Clinician [phone] Doctor Unassigned, [place] Attending Clinician U navailable Mehreen Attending Clinician ANIYA Velásquez Attending Clinician Unavail able Aniya Martines MD Attending Clinician [phone] Lab, Adc Fam Pob I Attending Clinician Unavailab Summer Ferraro Attending Clinician [phone] Mehreen Admitting Clinician Unavailabl e Payers Payer Name Policy Type Policy Number Effective Date Expiration Date Source [facility] [employer] EMT 9 [id number] 2020 00:00:00 [employer] COMMERCIAL OUT OF NETWORK [id number] 2020 00:00:00 [employer] C1 [id number] 2019 00:00:00 [facility] Problems Condition Name Condition Details Condition Category Status Onset Date Resolution Date Last Treatment Date Treating Clinician Comments Source Family history of breast cancer Family history of breast cancer Disease Active 10-02 00:00: 00 [facility] BMI 38.0-38.9, adult BMI 38.0-38.9, adult Disease Active 10-02 00:00: 00 [facility] Encounter for other contracept vernon management Encounter for other contracept vernon management Disease Active 10-02 00:00: 00 [facility] 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 Disease Active 2019-03 00:00: 00 [facility] Allergies, Adverse Reactions, Alerts Allergy Name Allergy Type Status Severity Reaction(s) Onset Date Inactive Date Treating Clinician Comments Source NO KNOWN ALLERGIE S Drug Class Active [facility] Social History Social Habit Start Date Stop Date Quantity Comments Source History of Tobacco Use Never Smoker [facility] Sexual orientation Omid Gould - External Gender identity Mindi Gould - External Alcohol intake 2023-04-23 00:00:00 2023-04-23 00:00:00 Ex-drinker (finding) Laurie Gould - External Tobacco use and exposure 2022-11-30 00:00:00 2022-11-30 00:00:00 Smokeless tobacco non-user Laurie Gould - External History of Social function 2022-11-30 00:00:00 2022-11-30 00:00:00 Laurie Gould - External Exposure to SARS-CoV-2 (event) 2021-12-23 00:00:00 2022-01-02 13:54:00 Not sure [facility] Sex Assigned At 2003 00:00:00 2005 00:00:00 Laurie Gould - External Smoking Status Start Date Stop Date Source Never smoked tobacco Laurie Gould - External Medications Ordered Medication Name Filled Medication Name Start Date Stop Date Current Medication? Ordering Clinician Indication Dosage Frequency Signature (SIG) Comments Components Source Naproxen (Naprosyn) 500 MG oral Tablet 04-29 00:00: 00 Yes [id number] 500mg Take 1 tablet (500 mg total) by mouth in the morning and 1 tablet (500 mg total) in the evening. Take with meals. Laurie pathak Baclofen 10 MG oral Tablet 04-29 00:00: 00 Yes [id number] 10mg Take 1 tablet (10 mg total) by mouth 3 times daily. Laurie pathak Drospirenon e-Ethinyl Estradiol 3-0.02 MG oral Tablet 04-23 00:00: 00 Yes [id number] 1{tbl} Take 1 tablet by mouth daily. Laurie pathak ondansetron (ZOFRAN (PF)) injection 4 mg 2022-03 09:45: 00 03-04 09:33 :00 No 4mg 4 mg, Slow IV Push, ONCE, 1 dose, On Sat03/04/23 at 0345, RAZ [facility] NaCl 0.9% (NS) IV infusion 1,000 mL 2022-03 09:00: 00 Yes 1000mL at 999 mL/hr, IV Infusion, CONTINUOUS , Starting on Sat03/04/23 at 0300, Until Discontinu ed, Routine [facility] cefTRIAXone (ROCEPHIN) 1,000 mg in NaCl 0.9% (NS) 100 mL MINI-BAG 2022-03 08:30: 00 03-04 09:03 :00 No 1000mg 1,000 mg, IV Piggyback, ONCE, 1 dose, On Sat03/04/23 at 0230, Administer over 30 Minutes, 100 mL
Reas on for Anti-Infec tive: Documented Infection< br>Documen radha Infection Site: Urine
D uration of Therapy: 10 days [facility] ondansetron (ZOFRAN (PF)) injection 4 mg 2022-03 08:00: 00 03-04 07:59 :00 No 4mg 4 mg, Slow IV Push, ONCE, 1 dose, On Sat03/04/23 at 0200, RAZ [facility] ondansetron 4 mg disintegrat ing tablet 2022-03 00:00: 00 Yes [id number] 4mg Take 1 tablet by mouth every 8 (eight) hours as needed for Nausea and Vomiting (N/V) for up to 15 doses. [facility] ciprofloxac in HCl 500 mg tablet 2022-03 00:00: 00 Yes [id number] 500mg Take 1 tablet by mouth in the morning and 1 tablet in the evening. [facility] benzonatate 100 mg capsule 2022-03 00:00: 00 Yes 100mg Take 1 capsule by mouth every 8 (eight) hours as needed. [facility] Azithromyci n 250 MG oral Tablet 2022-03 00:00: 00 01-31 05:59 :00 No [id number] Take 2 tablets by mouth on day 1 then 1 tablet by mouth daily for 4 days thereafter .. Laurie pathak drospirenon e-ethinyl estradioL 3-0.02 mg per tablet 11-30 00:00: 00 Yes 1{tbl} Take 1 tablet by mouth every morning. [facility] Drospirenon e-Ethinyl Estradiol 3-0.02 MG oral Tablet 9-08 00:00: 00 04-23 00:00 :00 No [id number] 1{tbl} Take 1 tablet by mouth daily. Laurie pathak norgestimat e-ethinyl estradioL (TRI-SPRINT EC) 0.18/0.215/ 0.25 mg-35 mcg (28) tablet 6-27 00:00: 00 03-04 00:00 :00 No [id number] 1{tbl} Take 1 tablet by mouth in the morning. [facility] norgestimat e-ethinyl estradioL (TRI-SPRINT EC) 0.18/0.215/ 0.25 mg-35 mcg (28) tablet 2021-03 0- 00:00: 00 03-04 00:00 :00 No [id number] 1{tbl} Take 1 tablet by mouth in the morning. [facility] norgestimat e-ethinyl estradioL (TRI-SPRINT EC) 0.18/0.215/ 0.25 mg-35 mcg (28) tablet 7-11 00:00: 00 01-02 00:00 :00 No [id number] 1{tbl} Take 1 tablet by mouth in the morning. [facility] bromphenira mine-pseudo ephedrine-D M (BROMFED DM) 2-30-10 mg/5 mL syrup 3-08 00:00: 00 10-02 00:00 :00 No [id number] 10mL Take 10 mL by mouth 4 (four) times daily as needed for Cold symptoms. [facility] No Known Medications No Known Medications No [facility] No Known Medications No Known Medications No [facility] Vital Signs Vital Name Observation Time Observation Value Comments S linda Systolic blood pressure 2023-04-23 20:04:00 118 mm[Hg] Laurie paredes - External Diastolic blood pressure 2023-04-23 20:04:00 65 mm[Hg] Laurie paredes - External Heart rate 2023-04-23 20:04:00 77 /min Junse y Seybold - External Body temperature 2023-04-23 20:04:00 36.78 Ana Laurie Seybold - External Respiratory rate 2023-04-23 20:04:00 20 /min Laurie Seybold - External Body height 2023-04-23 20:04:00 175.3 cm Mindi ey Seybold - External Body weight 2023-04-23 20:04:00 119.75 kg Mindi ey Seybold - External BMI 2023-04-23 20:04:00 38.99 kg/m2 Mindi ey Seybold - External Heart rate 2023-03-04 09:00:00 77 /min [facility] Respiratory rate 2023-03-04 09:00:00 27 /min [facility] Oxygen saturation in Arterial blood by Pulse oximetry 2023-03-04 09:00:00 97 /min [facility] Systolic blood pressure 2023-03-04 07:45:00 140 mm[Hg] [facility] Diastolic blood pressure 2023-03-04 07:45:00 73 mm[Hg] [facility] Body temperature 2023-03-04 07:45:00 36.78 Ana [facility] Body height 2023-03-04 07:45:00 172.7 cm [facility] Body weight 2023-03-04 07:45:00 117.935 kg [facility] BMI 2023-03-04 07:45:00 39.53 kg/m2 [facility] Systolic blood pressure 2023-01-25 13:50:00 132 mm[Hg] Laurie Graysonybo ld - External Diastolic blood pressure 2023-01-25 13:50:00 74 mm[Hg] Laurie ybo ld - External Heart rate 2023-01-25 13:50:00 [...] 40.45 kg/m2 Mindi ey Seybold - External Systolic blood pressure 2022-11-30 14:33:00 110 mm[Hg] Laurie Graysonybo ld - External Diastolic blood pressure 2022-11-30 14:33:00 60 mm[Hg] Laurie Seybo ld - External Heart rate 2022-11-30 14:33:00 64 /min Annika y Seybold - External Body temperature 2022-11-30 14:33:00 36.72 Ana Laurie Seybold - External Respiratory rate 2022-11-30 14:33:00 16 /min Laurie Seybold - External Body height 2022-11-30 14:33:00 172.7 cm Mindi ey Seybold - External Body weight 2022-11-30 14:33:00 117.482 kg Mindi ey Seybold - External BMI 2022-11-30 14:33:00 39.38 kg/m2 Mindi ey Seybold - External Systolic blood pressure 2022-01-02 18:55:00 144 mm[Hg] [facility] Diastolic blood pressure 2022-01-02 18:55:00 91 mm[Hg] [facility] Heart rate 2022-01-02 18:55:00 112 /min [facility] Body temperature 2022-01-02 18:54:00 36.28 Ana [facility] Respiratory rate 2022-01-02 18:54:00 18 /min [facility] Body height 2022-01-02 18:54:00 172.7 cm [facility] Body weight 2022-01-02 18:54:00 114.477 kg [facility] BMI 2022-01-02 18:54:00 38.37 kg/m2 [facility] Body mass index (BMI) [Percentile] Per age and sex 2022-01-02 18:54:00 98.43 % [facility] Systolic blood pressure 2021-10-02 18:45:00 130 mm[Hg] [facility] Diastolic blood pressure 2021-10-02 18:45:00 67 mm[Hg] [facility] Heart rate 2021-10-02 18:45:00 81 /min [facility] Body temperature 2021-10-02 18:45:00 36.89 Ana [facility] Respiratory rate 2021-10-02 18:45:00 18 /min [facility] Body height 2021-10-02 18:45:00 172.7 cm [facility] Body weight 2021-10-02 18:45:00 114.987 kg [facility] BMI 2021-10-02 18:45:00 38.54 kg/m2 [facility] Body mass index (BMI) [Percentile] Per age and sex 2021-10-02 18:45:00 98.53 % [facility] height 2020-01-15 15:40:00 68 [in_i] Commo n [facility] weight 2020-01-15 15:40:00 216.0 [lb_av] Co mmon [facility] temperature 2020-01-15 15:40:00 97.3 [degF] Com mon [facility] bmi 2020-01-15 15:40:00 32.84 kg/m2 Comm on [facility] oximetry 2020-01-15 15:40:00 99 % [facility] respiratory rate 2020-01-15 15:40:00 19 /min [facility] blood pressure systolic 2020-01-15 15:40:00 124 mm[Hg] Common [facility] blood pressure diastolic 2020-01-15 15:40:00 69 mm[Hg] Common [facility] height 2019-12-21 10:00:00 68 [in_i] Commo n [facility] weight 2019-12-21 10:00:00 219.2 [lb_av] Co mmon [facility] temperature 2019-12-21 10:00:00 96.3 [degF] Com mon [facility] bmi 2019-12-21 10:00:00 33.33 kg/m2 Comm on [facility] oximetry 2019-12-21 10:00:00 99 % Commo n [facility] respiratory rate 2019-12-21 10:00:00 19 /min [facility] blood pressure systolic 2019-12-21 10:00:00 134 mm[Hg] [facility] blood pressure diastolic 2019-12-21 10:00:00 61 mm[Hg] [facility] Procedures Procedure Date / Time Performed Performing Clinicia n Source COMP. METABOLIC PANEL (85948) 2023-03-04 08:26:00 Mansi Barlow [facility] RAPID STREP SCREEN FOR GROUP A 2023-03-04 08:00:00 Mansi Barlow [facility] RAPID INFLUENZA A/B 2023-03-04 08:00:00 Nancy Barlow [facility] COVID-19 (ID NOW RAPID TESTING) 2023-03-04 08:00:00 Mansi Barlow [facility] CBC WITH DIFF 2023-03-04 07:59:00 Mansi Barlow [facility] URINALYSIS 2023-03-04 07:59[facility] 2023-03-04 07:57:00 Nancy Barlow [facility] NOTICE OF PRIVACY PRACTICES 2023-03-04 07:42:05 Doctor Unassigned, [place] [facility] CONSENT/REFUSAL FOR DIAGNOSIS AND TREATMENT 2023-03-04 07:40:52 Doctor Unassigned, [place] [facility] POCT TEST 2022-01-02 21:34:00 Bob Alvarez [facility] POCT TEST 2021-10-02 18:51:00 Madison Pike [facility] Encounters Start Date/Time End Date/Time Encounter Type Admission Type Attending Clinicians Care Facility Care Department Encounter ID Source 2021-04-19 12:35:28 Outpatient Paris Lewis STLMLC STLMLC [id number] [facility] 2021-04-19 12:03:36 Outpatient DebbiePaz álvarezli STLMLC STLMLC [id number] [facility] 2021-04-19 12:03:13 Outpatient DebbiePaz álvarezli STLMLC STLMLC [id number] [facility] 2021-04-19 12:02:43 Outpatient DebbieParis álvarez STLMLC STLMLC [id number] [facility] 2021-04-19 12:00:57 Outpatient DebbieParis álvarez STLMLC STLMLC [id number] [facility] 2021-04-19 11:59:50 Outpatient Paris Lewis STLMLC STLMLC [id number] [facility] 2021-04-19 11:49:30 Outpatient Paris Lewis STLMLC STLMLC [id number] [facility] 2023-11-29 11:00:00 2023-11-29 11:00:00 Outpatient STEVE LABOY [id number] [facility] 2023-04-29 14:30:00 2023-04-29 14:30:00 Outpatient KATHI MARCH [id number] [facility] 2023-04-29 14:25:00 2023-04-29 14:25:00 Outpatient RODRICK KULKARNI [id number] [facility] 2023-04-23 15:00:00 2023-04-23 15:00:00 Outpatient PENNY SCHWAB [id number] [facility] 2023-04-23 14:30:00 2023-04-23 14:30:00 Outpatient STEVE LABOY [id number] [facility] 2023-03-04 01:46:00 2023-03-04 03:41:00 Emergency X MANSI BARLOW [facility] E[facility] [id number] [facility] 2023-03-04 01:46:00 2023-03-04 03:41:00 Emergency Mansi Barlow [facility] .2.840.114 350.1.13.10 4.2.7.2.686 [id number] [facility] 2023-01-28 00:00:00 2023-01-28 00:00:00 Outpatient CHARU DOMINGUEZ [id number] [facility] 2023-01-25 09:00:00 2023-01-25 09:00:00 Outpatient CHARU DOMINGUEZ [id number] [facility] 2022-12-26 13:00:00 2022-12-26 13:00:00 Outpatient TRISH FAULKNER [facility] [id number] [facility] 2022-11-30 09:30:00 2022-11-30 09:30:00 Outpatient STEVE LABOY [id number] [facility] 2022-10-16 00:00:00 2022-10-16 00:00:00 Lachelle Lopez [facility] MATERNAL & CHILD [facility] 1.2.840.114 350.1.13.10 4.2.7.2.686 [id number] [facility] 2022-10-02 09:30:00 2022-10-02 09:30:00 Outpatient LACHELLE PERALES [facility] [id number] [facility] 2022-04-17 14:36:44 2022-04-17 14:36:44 Outpatient ROBEL HUSTON [id number] Edmond Bell 2022-01-02 13:45:00 2022-01-02 14:21:18 Outpatient LACHELLE PERALES [facility] [id number] [facility] 2022-01-02 13:45:00 2022-01-02 14:21:18 Office Visit Kim Lachelle C [facility]ULP [facility] & CHILD [facility] 1.2.840.114 350.1.13.10 4.2.7.2.686 [id number] [facility] 2021-12-23 00:00:00 2021-12-23 00:00:00 Madison Rene [facility] & CHILD [facility] 1.2.840.114 350.1.13.10 4.2.7.2.686 [id number] [facility] 2021-10-02 13:30:00 2021-10-02 14:42:16 Outpatient TONY DE LEON [facility] [id number] [facility] 2021-10-02 13:30:00 2021-10-02 14:42:16 Office Visit Provider, WillaRmchp Tony Hawkins [facility]UL[facility] CHILD [facility] 1..840.114 350.1.13.10 4.2.7.2.686 [id number] [facility] 2021-10-02 13:30:00 2021-10-02 14:42:16 Outpatient TONY DE LEON [facility] [id number] [facility] 2021-10-02 00:00:00 2021-10-02 00:00:00 Orders Only Doctor Unassigned, [place] [facility] 1.840.114 350.1.13.10 4.2.7.2.686 [id number] [facility] 2021-08-30 02:21:00 2021-08-30 02:21:00 Outpatient Cy Carmona [facility] [id number] [facility] 2021-05-30 13:40:00 2021-05-30 14:02:34 Outpatient ANIYA CHERRY [facility] [id number] [facility] 2021-05-30 13:40:00 2021-05-30 14:02:34 Office Visit Aniya Martines [facility] 1.2.840.114 350.1.13.10 4.2.7.2.686 [id number] [facility] 2021-05-30 00:00:00 2021-05-30 00:00:00 Orders Only Doctor Unassigned, [place] [facility] 1.2.840.114 350.1.13.10 4.2.7.2.686 [id number] [facility] 2021-05-30 00:00:00 2021-05-30 00:00:00 Letter (Out) Aniya Martines [facility] 1.2.840.114 350.1.13.10 4.2.7.2.686 [id number] [facility] 2020-02-02 00:00:00 2020-02-02 00:00:00 (TEL) STLMLC STLMLC [id number] [facility] 2020-01-15 00:00:00 2020-01-15 00:00:00 OFFICE VISIT EST PT LEVEL 3 STLMLC STLMLC [id number] [facility] 2019-12-31 00:00:00 2019-12-31 00:00:00 (TEL) STLMLC STLMLC [id number] [facility] 2019-12-23 00:00:00 2019-12-23 00:00:00 (TEL) STLMLC STLMLC [id number] [facility] 2019-12-21 00:00:00 2019-12-21 00:00:00 OFFICE VISIT NEW PT LEVEL 3 STLMLC STLMLC [id number] [facility] 2019-09-25 10:40:00 2019-09-25 10:40:00 Outpatient R [facility] [id number] [facility] 2019-09-25 10:12:37 2019-09-25 10:32:37 Laboratory Only Lab, [facility] Fam Pob I Summer Meraz [facility] [address] 1.0.114 350.1.13.10 4.2.7.2.686 [id number] [facility] 2019-09-25 10:12:37 2019-09-25 10:32:37 Laboratory Only Lab, Adc Fam Pob I [facility] [address] 1.840.114 350.1.13.10 4.2.7.2.686 [id number] Results Test Description Test Time Test Comments Results Result Co mments Source [facility] WITH [id number] 08:42:11* Test Item Value Reference Range Interpretation [...] 33.1 g/dL 31.6-35.1 RDW-SD (test code = 67234-2) 40.1 fL 39.0-49.9 RDW-CV (test code = 788-0) 13.3 % 12.0-15.5 PLT (test code = 777-3) 331 See_Comment [Automated message] The system which generated this result transmitted reference range: 166 - 358 10*3/?L. The reference range was not used to interpret this result as normal/abnormal. MPV (test code = 81659-0) 10.9 fL 9.5-12.9 NRBC/100 WBC (test code = 6095409606) 0.0 See_Comment [Automated message] The system which generated this result transmitted reference range: 0.0 - 10.0 /100 WBCs. The reference range was not used to interpret this result as normal/abnormal. NRBC x10^3 (test code = 9918301656) See_Comment [Automated message] The system which generated this result transmitted reference range: 10*3/?L. The reference range was not used to interpret this result as normal/abnormal. GRAN MAT (NEUT) % (test code = 770-8) 90.0 % IMM GRAN % (test code = 4326634537) 0.70 % LYMPH % (test code = 736-9) 2.9 % MONO % (test code = 5905-5) 6.0 % EOS % (test code = 713-8) 0.1 % BASO % (test code = 706-2) 0.3 % GRAN MAT x10^3(ANC) (test code = 9485132174) 24.76 10*3/uL 1.88-7.09 H IMM GRAN x10^3 (test code = 9652311228) 0.20 10*3/uL 0.00-0.06 H LYMPH x10^3 (test code = 731-0) 0.80 10*3/uL 1.32-3.29 L MONO x10^3 (test code = 742-7) 1.65 10*3/uL 0.33-0.92 H EOS x10^3 (test code = 711-2) 0.04 10*3/uL 0.03-0.39 BASO x10^3 (test code = 704-7) 0.08 10*3/uL 0.01-0.07 H BANDS (test code = 4091613596) Increased A Lab Interpretation (test code = 92877-6) Abnormal [facility] [id number] 07:57:00* Test Item Value Reference Range Interpretation Comme nts POCT PREG (test code = 1605) Negative On board controls acceptable with C Line (test code = 3574) Yes POCT PREG LOT # (test code = 3575) [id number] POCT PREG TEST DATE ( test code = 3576) 06/02/2024 Lab Interpretation (test cod e = 72961-5) Normal [facility] [id number] 21:34:00* Test Item Value Reference Range Interpretation Comme nts POCT PREG (test code = 1605) Negative On board controls acceptable with C Line (test code = 3574) Yes POCT PREG LOT # (test code = 3575) POCT PREG TEST DATE ( test code = 3576) [facility] [id number] 21:34:00* Test Item Value Reference Range Interpretation Comme nts POCT PREG (test code = 1605) Negative On board controls acceptable with C Line (test code = 3574) Yes POCT PREG LOT # (test code = 3575) POCT PREG TEST DATE ( test code = 3576) [facility] [id number] 18:51:00* Test Item Value Reference Range Interpretation Comme nts POCT PREG (test code = 1605) Negative On board controls acceptable with C Line (test code = 3574) Yes POCT PREG LOT # (test code = 3575) POCT PREG TEST DATE ( test code = 3576) [facility] [id number] 18:51:00* Test Item Value Reference Range Interpretation Comme nts POCT PREG (test code = 1605) Negative On board controls acceptable with C Line (test code = 3574) Yes POCT PREG LOT # (test code = 3575) POCT PREG TEST DATE ( test code = 3576) [facility] Notes Date/Time Note Provider Source 2023-04-23 13:59:56 [id number]:59:56F ormatting of this note is different from the original.Chief ComplaintPatient [place] [address]-8Mskbc HuyaGS6040-20-66Q48:00:00Nurse NoteTXT1.2.840.350343.1.13.131.2.7.2. [id number] for patient vxpn27487-2Aeigt NoteLNNARRATIVEFormatted C-CDA narrative textSSM Health St[facility] [place] [place], [place] [id number] 8262-13-80M07:00:001.2.840.712185.1.7 2.3.15|1.2.840.962773.1.13.131.2.7.2. [id number] [facility] 2022-11-30 09:31:22 [id number]:31:22F ormatting of this note is different from the original.Chief Complaint Patient presents with Well Woman Exam Discuss [place] [address]-4Qunjy [id number]:00:12Nurse NoteTXT1.2.840.867557.1.13.131.2.7.2. [id number] for patient mnkb04617-4Ancdd NoteLNSSM Health [address] [facility] [place] [place], [place] [id number] [id number]:00:121.2.840.889646.1.7 2.3.15|1.2.840.706303.1.13.131.2.7.2. [id number] [facility]"
[2023-08-27] MEDS ORDERED: KETOROLAC 30 MG/ML INJ ONE (13:06)
[2023-08-27] MEDS ORDERED: methocarbamoL 500 MG TAB ONE (13:06)
--- NOTE | 2023-08-27 13:25 | RAD REPORT ---
EXAM DESCRIPTION: RAD - Knee Left 3 View - 08/27/2023 1:03 pm CLINICAL HISTORY: Left knee pain FINDINGS: No fracture or dislocation is seen. Mild medial joint space narrowing If the patient continues to have symptoms to suggest an occult fracture then a followup plain film se sujey in 7 days would be recommended
--- NOTE | 2023-08-27 13:48 | ER ---
Nurse's Notes [facility] Name: Taryn Azul Age: 18 yrs Sex: Female : 2005 Arrival Date: 08/27/2023 Time: 11:09 Bed 10 Private MD: Diagnosis: Sprain of unspecified site of left knee Presentation: 08/26 11:27 Chief complaint: Patient states: "I slipped in the garage and felt my left knee pop. It mb9 hurts really bad.". Coronavirus screen: At this time, the client does not indicate any symptoms associated with coronavirus-19. Ebola Screen: No symptoms or risks identified at this time. Initial Sepsis Screen: Does the patient meet any 2 criteria? No. Patient's initial sepsis screen is negative. Does the patient have a suspected source of infection? No. Patient's initial sepsis screen is negative. Risk Assessment: Do you want to hurt yourself or someone else? Patient reports no desire to harm self or others. Onset of symptoms was August 27, 2023. 11:27 Method Of Arrival: Ambulatory [facility] 11:27 Acuity: ROMERO 4 mb9 Triage Assessment: 11:29 General: Appears in no apparent distress. Behavior is calm, cooperative. Pain: mb9 Complains of pain in left leg. Pain: Pain does not radiate. Pain currently is 7 out of 10 on a pain scale. Quality of pain is described as burning, throbbing, Pain began suddenly. EENT: No signs and/or symptoms were reported regarding the EENT system. Neuro: Corona Agitation-Sedation Scale (RASS): 0 - Alert and Calm Level of Consciousness is awake, alert, obeys commands, Oriented to person, place, time, situation, Appropriate for age. Cardiovascular: Patient's skin is warm and dry. Respiratory: Airway is patent Respiratory effort is even, unlabored, Respiratory pattern is regular, symmetrical. GI: No signs and/or symptoms were reported involving the gastrointestinal system. : No signs and/or symptoms were reported regarding the genitourinary system. Derm: Skin is pink, warm \\T\\ dry. Musculoskeletal: Range of motion: limited in left knee. Historical: - Allergies: 11:29 No Known Allergies; mb9 - Home Meds: 11:29 None [Active]; mb9 - PMHx: 11:29 None; mb9 - PSHx: 11:29 None; mb9 - Immunization history:: Adult Immunizations up to date. - Infectious Disease History:: Denies. - Social history:: Smoking status: Patient denies any tobacco usage or history of. Screenin:30 [facility] ED Fall Risk Assessment (Adult) History of falling in the last 3 months, kc6 including since admission Yes- single mechanical fall (1 pt) Confusion or Disorientation No (0 pts) Intoxicated or Sedated No (0 pts) Impaired Gait No (0 pts) Mobility Assist Device Used No (0 pt) Altered Elimination No (0 pt) Score/Fall Risk Level 0 - 2 = Low Risk. Abuse screen: Denies threats or abuse. Denies injuries from another. Nutritional screening: No deficits noted. Tuberculosis screening: No symptoms or risk factors identified. Assessment: 12:31 General: Appears in no apparent distress. comfortable, well groomed, well developed, kc6 Behavior is calm, cooperative, appropriate for age. Pain: Complains of pain in left knee and left leg. Neuro: Level of Consciousness is awake, alert, obeys commands, Oriented to person, place, time, situation, Appropriate for age. Cardiovascular: Capillary refill < 3 seconds. Respiratory: Airway is patent Trachea midline Respiratory effort is even, unlabored, Respiratory pattern is regular, symmetrical. GI: No signs and/or symptoms were reported involving the gastrointestinal system. : No signs and/or symptoms were reported regarding the genitourinary system. EENT: No signs and/or symptoms were reported regarding the EENT system. Derm: No signs and/or symptoms reported regarding the dermatologic system. Skin is intact, is healthy with good turgor, Skin is pink, warm \\T\\ dry. Musculoskeletal: Circulation, motion, and sensation intact. Capillary refill < 3 seconds, Range of motion: intact in all extremities. 13:31 Reassessment: Patient appears in no apparent distress at this time. No changes from kc6 previously documented assessment. Patient and/or family updated on plan of care and expected duration. Pain level reassessed. Patient is alert, oriented x 3, equal unlabored respirations, skin warm/dry/pink. Vital Signs: 11:27 BP 125 / 85; Pulse 94; Resp 18; Temp 98(O); Pulse Ox 100% on R/A; Weight 117.93 kg; mb9 Height 5 ft. 8 in. ; Pain 7/10; 14:10 BP 122 / 76; Pulse 90; Resp 16 S; Pulse Ox 100% on R/A; kc6 11:27 Body Mass Index 39.53 (117.93 kg, 172.72 cm) mb9 11:27 Pain Scale: Adult 9 ED Course: 11:11 Patient arrived in ED. mg5 11:29 Triage completed. mb9 11:29 Antwon Tovar MD is Attending Physician. ec2 11:29 Arm band placed on. mb9 12:29 Coty Dobbins RN is Primary Nurse. kc6 12:30 Patient has correct armband on for positive identification. Bed in low position. Call kc6 light in reach. Side rails up X 1. Pulse ox on. NIBP on. Pillow given. 13:05 Knee Left 3 View XRAY In Process Unspecified. EDMS 14:10 No provider procedures requiring assistance completed. Patient did not have IV access kc6 during this emergency room visit. 14:11 Joseph wrap to left knee. kc6 Administered Medications: 13:10 Drug: Methocarbamol PO 500 mg PO once Route: PO; kc6 14:10 Follow up: Response: No adverse reaction kc6 13:10 Drug: Ketorolac IM 30 mg IM once Route: IM; Site: right deltoid; kc6 14:10 Follow up: Response: No adverse reaction kc6 Medication: 14:11 VIS not applicable for this client. kc6 Outcome: 13:48 Discharge ordered by . ec2 14:10 Discharged to home ambulatory, with family, kc6 14:10 Condition: good 14:10 Discharge instructions given to patient, Instructed on discharge instructions, follow up and referral plans. medication usage, Demonstrated understanding of instructions, follow-up care, medications, Prescriptions given X 1, 14:11 Patient left the ED. kc6 Signatures: Dispatcher [employer] Coty Hdez RN RN kc6 Georgiana Daniel RN RN mb9 [place], [place] mg5 Antwon Tovar MD MD ec2
--- NOTE | 2023-08-27 13:48 | EDPHYS ---
Physician Documentation [facility] Name: Taryn Azul Age: 18 yrs Sex: Female : 2005 Arrival Date: 08/27/2023 Time: 11:09 Bed 10 Private MD: ED Physician Antwon Tovar HPI: 08/26 13:02 This 18 yrs old Female presents to ER via Ambulatory with complaints of Knee ec2 Injury. 13:02 Patient arrives today for left knee injury. Patient reports that she slipped in her ec2 garage and fell her knee "pop ". Patient came with crutches that she brought in. Denies any other injuries. Has not taken medications. Injury occurred prior to arrival. . Historical: - Allergies: 11:29 No Known Allergies; mb9 - Home Meds: 11: None [Active]; mb9 - PMHx: 11:29 None; mb9 - PSHx: 11:29 None; mb9 - Immunization history:: Adult Immunizations up to date. - Infectious Disease History:: Denies. - Social history:: Smoking status: Patient denies any tobacco usage or history of. ROS: 13:02 Constitutional: as per hpi ec2 Exam: 13:02 Constitutional: GEN: NAD Head: atraumatic Eyes: EOMI Ears: External ears are ec2 normal. CV: regular rate LUNGS: no respiratory distress ABD: non-distended SKIN: no evidence of rashes MSK: no evidence of trauma, left knee with TTP to the distal femur, proximal tibia, no deformities, scant amount of effusion noted at the knee joint. Intact distal neurovascular status. NEURO: moves all extremities equally Vital Signs: 11:27 BP 125 / 85; Pulse 94; Resp 18; Temp 98(O); Pulse Ox 100% on R/A; Weight 117.93 kg; mb9 Height 5 ft. 8 in. ; Pain 7/10; 14:10 BP 122 / 76; Pulse 90; Resp 16 S; Pulse Ox 100% on R/A; kc6 11:27 Body Mass Index 39.53 (117.93 kg, 172.72 cm) mb9 11:27 Pain Scale: Adult mb9 MDM: 11:29 Patient medically screened. ec2 13:02 Data reviewed: vital signs. ED course: Patient arrives today for evaluation of the left ec2 knee pain. Examination remarkable for left knee findings as above. Will obtain radiograph of the knee. Differential diagnosis include ligamentous injury, doubt bony fracture. Additionally considering bony contusion.. 13:48 ED course: Knee x-ray independently reviewed and interpreted by me, shows no acute ec2 traumatic pathology. Will discharge home. Return precautions given.. 14:14 ED course: MDM: Differential diagnosis as documented above in ED course; Independent ec2 interpretation of tests: radiograph as above; . 08/26 11:29 Order name: Knee Left 3 View XRAY; Complete Time: 13:47 ec2 08/26 13:48 Order name: Joseph Wrap; Complete Time: 14:10 ec2 Administered Medications: 13:10 Drug: Methocarbamol PO 500 mg PO once Route: PO; kc6 14:10 Follow up: Response: No adverse reaction kc6 13:10 Drug: Ketorolac IM 30 mg IM once Route: IM; Site: right deltoid; kc6 14:10 Follow up: Response: No adverse reaction kc6 Disposition Summary: 08/27/23 13:48 Discharge Ordered Notes: Location: Home ec2 Condition: Stable ec2 Diagnosis - Sprain of unspecified site of left knee ec2 Followup: ec2 - With: Private Physician - When: - Reason: Re-evaluation by your physician Discharge Instructions: - Discharge Summary Sheet ec2 Forms: - Medication Reconciliation Form ec2 - Antibiotic Education ec2 - Prescription Opioid Use ec2 - Patient Portal Instructions ec2 - Leadership Thank You Letter ec2 Prescriptions: - methocarbamol 500 mg Oral tablet - take 2 tablets ORAL route 4 times per day; 20 tablet; Refills: 0, Product ec2 Selection Permitted Signatures: Dispatcher [employer] Coty Hdez RN RN kc6 Georgiana Daniel RN RN mb9 Antwon Tovar MD MD ec2 Corrections: (The following items were deleted from the chart) 11:30 11:30 Knee Left 3 View+[email or web address] ordered. ROLAND WATKINS
[2023-08-27 14:43] VITALS: BP 122/76; TEMP 98; O2SAT 100
== END 2023-08-27 14:11 | disposition home or self-care (01) ==
LOC: ER 11:09
DX: S83.92XA Sprain of unspecified site of left knee, initial encounter (principal)
CPT/HCPCS: 96372; 99284

== ENCOUNTER 2024-01-22 03:34 | Emergency (ER) | payer OTHER ==
--- OUTSIDE RECORDS SUMMARY | 2024-01-22 03:37 | XMS REPORT | Continuity of Care Document ---
Author Name Unknown Address [address] [facility] [address] [place] [address] [facility] thconnect Address [address] [facility]. [address] [place] [address] Care Team Providers Care Dance Director Name Role Phone PCP, PATIENT DOES NOT HAVE A Primary Care Physic law Unavailable Paris Lewis Attending Clinician Unavailable MANSI BARLOW Attending Clinician Unavailable TRISH MARTIN Attending Clinician Unavaila neisha Alvarez Lachelle AGRAWAL Attending Clinician + LACHELLE ALVAREZ Attending Clinician Unavail able Madison Leiva Attending Clinician [phone] TONY HOGUE Attending Clinician Unavailable Provider, Tato-Rmchirish Temp Attending Clinician Ashley Tony Jennings Attending Clinician [phone] Doctor Unassigned, [place] Attending Clinician U navailnanette WHALEY_Joshua_Lee_ Attending Clinician Unavailabl e SANTIAGO, ANIYA N Attending Clinician Unavail able Aniya Santiago MD Attending Clinician Lab, Adc Fam Pob I Attending Clinician Unavailab Summer Ferraro Attending Clinician JUDD_Joshua_Lee_ Admitting Clinician Unavailabl e Payers Payer Name Policy Type Policy Number Effective Date Expiration Date Source [employer] [id number] 2020 00:00:00 [employer] C1 [id number] 2019 00:00:00 [facility] Problems Condition Name Condition Details Condition Category Status Onset Date Resolution Date Last Treatment Date Treating Clinician Comments Source Family history of breast cancer Family history of breast cancer Disease Active 10-02 00:00: 00 General acute hospital BMI 38.0-38.9, adult BMI 38.0-38.9, adult Disease Active 10-02 00:00: 00 General acute hospital Encounter for other contracept vernon management Encounter for other contracept vernon management Disease Active 10-02 00:00: 00 General acute hospital 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 Disease Active 2019-03 00:00: 00 General acute hospital Allergies, Adverse Reactions, Alerts Allergy Name Allergy Type Status Severity Reaction(s) Onset Date Inactive Date Treating Clinician Comments Source NO KNOWN ALLERGIE S Drug Class Active General acute hospital Social History Social Habit Start Date Stop Date Quantity Comments Source Gender identity Univ [facility] Sexual orientation U [facility] Sex Assigned At [facility] History of Tobacco Use Never Smoker [facility] History of Social function 2023-03-04 00:00:00 2023-03-04 00:00:00 [facility] Alcohol intake 2023-03-04 00:00:00 2023-03-04 00:00:00 Ex-drinker (finding) [facility] Exposure to SARS-CoV-2 (event) 2021-12-23 00:00:00 2022-01-02 13:54:00 Not sure [facility] Tobacco use and exposure 2021-10-02 00:00:00 2021-10-02 00:00:00 Smokeless tobacco non-user [facility] Smoking Status Start Date Stop Date Source Never smoked tobacco General acute hospital Medications Ordered Medication Name Filled Medication Name Start Date Stop Date Current Medication? Ordering Clinician Indication Dosage Frequency Signature (SIG) Comments Components Source ondansetron (ZOFRAN (PF)) injection 4 mg 2022-03 09:45: 00 03-04 09:33 :00 No 4mg 4 mg, Slow IV Push, ONCE, 1 dose, On Sat03/04/23 at 0345, RAZ General acute hospital NaCl 0.9% (NS) IV infusion 1,000 mL 2022-03 09:00: 00 Yes 1000mL at 999 mL/hr, IV Infusion, CONTINUOUS , Starting on Sat03/04/23 at 0300, Until Discontinu ed, Routine General acute hospital cefTRIAXone (ROCEPHIN) 1,000 mg in NaCl 0.9% (NS) 100 mL MINI-BAG 2022-03 08:30: 00 03-04 09:03 :00 No 1000mg 1,000 mg, IV Piggyback, ONCE, 1 dose, On Sat03/04/23 at 0230, Administer over 30 Minutes, 100 mL
Reas on for Anti-Infec tive: Documented Infection< br>Documen radha Infection Site: Urine
D uration of Therapy: 10 days General acute hospital ondansetron (ZOFRAN (PF)) injection 4 mg 2022-03 08:00: 00 03-04 07:59 :00 No 4mg 4 mg, Slow IV Push, ONCE, 1 dose, On Sat03/04/23 at 0200, RAZ General acute hospital ondansetron 4 mg disintegrat ing tablet 2022-03 00:00: 00 Yes [id number] 4mg Take 1 tablet by mouth every 8 (eight) hours as needed for Nausea and Vomiting (N/V) for up to 15 doses. General acute hospital ciprofloxac in HCl 500 mg tablet 2023-1 2-11 00:00: 00 Yes [id number] 500mg Take 1 tablet by mouth in the morning and 1 tablet in the evening. General acute hospital benzonatate 100 mg capsule 2022-03 1-03 00:00: 00 Yes 100mg Take 1 capsule by mouth every 8 (eight) hours as needed. General acute hospital drospirenon e-ethinyl estradioL 3-0.02 mg per tablet 9-08 00:00: 00 Yes 1{tbl} Take 1 tablet by mouth every morning. General acute hospital norgestimat e-ethinyl estradioL (TRI-SPRINT EC) 0.18/0.215/ 0.25 mg-35 mcg (28) tablet 6-27 00:00: 00 03-04 00:00 :00 No [id number] 1{tbl} Take 1 tablet by mouth in the morning. General acute hospital norgestimat e-ethinyl estradioL (TRI-SPRINT EC) 0.18/0.215/ 0.25 mg-35 mcg (28) tablet 2021-03 0-11 00:00: 00 03-04 00:00 :00 No [id number] 1{tbl} Take 1 tablet by mouth in the morning. General acute hospital norgestimat e-ethinyl estradioL (TRI-SPRINT EC) 0.18/0.215/ 0.25 mg-35 mcg (28) tablet 7- 00:00: 00 01-02 00:00 :00 No [id number] 1{tbl} Take 1 tablet by mouth in the morning. General acute hospital bromphenira mine-pseudo ephedrine-D M (BROMFED DM) 2-30-10 mg/5 mL syrup 3-08 00:00: 00 10-02 00:00 :00 No [id number] 10mL Take 10 mL by mouth 4 (four) times daily as needed for Cold symptoms. General acute hospital No Known Medications No Known Medications No [facility] No Known Medications No Known Medications No [facility] Vital Signs Vital Name Observation Time Observation Value Comments S linda Heart rate 2023-03-04 09:00:00 77 /min [facility] Respiratory rate 2023-03-04 09:00:00 27 /min [facility] Oxygen saturation in Arterial blood by Pulse oximetry 2023-03-04 09:00:00 97 /min [facility] Systolic blood pressure 2023-03-04 07:45:00 140 mm[Hg] [facility] Diastolic blood pressure 2023-03-04 07:45:00 73 mm[Hg] [facility] Body temperature 2023-03-04 07:45:00 36.78 Ana [facility] Body height 2023-03-04 07:45:00 172.7 cm [facility] Body weight 2023-03-04 07:45:00 117.935 kg [facility] BMI 2023-03-04 07:45:00 39.53 kg/m2 [facility] Systolic blood pressure 2022-01-02 18:55:00 144 mm[Hg] [facility] Diastolic blood pressure 2022-01-02 18:55:00 91 mm[Hg] [facility] Heart rate 2022-01-02 18:55:00 112 /min [facility] Body temperature 2022-01-02 18:54:00 36.28 Ana [facility] Respiratory rate 2022-01-02 18:54:00 18 /min [facility] Body height 2022-01-02 18:54:00 172.7 cm [facility] Body weight 2022-01-02 18:54:00 114.477 kg [facility] BMI 2022-01-02 18:54:00 38.37 kg/m2 [facility] Body mass index (BMI) [Percentile] Per age and sex 2022-01-02 18:54:00 98.43 % [facility] Systolic blood pressure 2021-10-02 18:45:00 130 mm[Hg] [facility] Diastolic blood pressure 2021-10-02 18:45:00 67 mm[Hg] [facility] Heart rate 2021-10-02 18:45:00 81 /min [facility] temperature 2021-10-02 18:45:00 36.89 Ana [facility] Respiratory rate 2021-10-02 18:45:00 18 /min [facility] Body height 2021-10-02 18:45:00 172.7 cm [facility] Body weight 2021-10-02 18:45:00 114.987 kg [facility] BMI 2021-10-02 18:45:00 38.54 kg/m2 [facility] Body mass index (BMI) [Percentile] Per age and sex 2021-10-02 18:45:00 98.53 % [facility] height 2020-01-15 15:40:00 68 [in_i] [facility] n [facility] weight 2020-01-15 15:40:00 216.0 [lb_av] Co m[facility] temperature 2020-01-15 15:40:00 97.3 [degF] Com mon [facility] bmi 2020-01-15 15:40:00 32.84 kg/m2 Comm on [facility] oximetry 2020-01-15 15:40:00 99 % [facility] respiratory rate 2020-01-15 15:40:00 19 /min [facility] blood pressure systolic 2020-01-15 15:40:00 124 mm[Hg] Common [facility] blood pressure diastolic 2020-01-15 15:40:00 69 mm[Hg] Common [facility] height 2019-12-21 10:00:00 68 [in_i] [facility] n [facility] weight 2019-12-21 10:00:00 219.2 [lb_av] Co m[facility] temperature 2019-12-21 10:00:00 96.3 [degF] Com mon [facility] bmi 2019-12-21 10:00:00 33.33 kg/m2 [facility] oximetry 2019-12-21 10:00:00 99 % Com[facility] n [facility] respiratory rate 2019-12-21 10:00:00 19 /min [facility] blood pressure systolic 2019-12-21 10:00:00 134 mm[Hg] [facility] blood pressure diastolic 2019-12-21 10:00:00 61 mm[Hg] [facility] Procedures Procedure Date / Time Performed Performing Clinicia n Source COMP. METABOLIC PANEL (01033) 2023-03-04 08:26:00 Mansi Barlow [facility] RAPID STREP SCREEN FOR GROUP A 2023-03-04 08:00:00 Mansi Barlow [facility] RAPID INFLUENZA A/B 2023-03-04 08:00:00 Nancy Barlow [facility] COVID-19 (ID NOW RAPID TESTING) 2023-03-04 08:00:00 Mansi Barlow [facility] CBC WITH DIFF 2023-03-04 07:59:00 Mansi Barlow [facility] URINALYSIS 2023-03-04 07:59:[address] [facility] POCT TEST 2023-03-04 07:57:00 Nancy Barlow [facility] NOTICE OF PRIVACY PRACTICES 2023-03-04 07:42:05 Doctor Unassigned, [place] [facility] CONSENT/REFUSAL FOR DIAGNOSIS AND TREATMENT 2023-03-04 07:40:52 Doctor Unassigned, [place] [facility] POCT TEST 2022-01-02 21:34:00 Bob Alvarez [facility] POCT TEST 2021-10-02 18:51:00 Madison Pike [facility] Encounters Start Date/Time End Date/Time Encounter Type Admission Type Attending Clinicians Care Facility Care Department Encounter ID Source 2021-04-19 12:35:28 Outpatient Paris [facility] [id number] [facility] 2021-04-19 12:03:36 Outpatient Debbie, Paris [facility] [id number] [facility] 2021-04-19 12:03:13 Outpatient Debbie, [place] [facility] [id number] [facility] 2021-04-19 12:02:43 Outpatient Debbie, [place] [facility] [id number] [facility] 2021-04-19 12:00:57 Outpatient Debbie, [place] [facility] [id number] [facility] 2021-04-19 11:59:50 Outpatient Debbie, [place] [facility] [id number] [facility] 2021-04-19 11:49:30 Outpatient DebbieParis álvarez [facility] [id number] [facility] 2023-03-04 01:46:00 2023-03-04 03:41:00 Emergency X MANSI BARLOW [facility] ERT [id number] General acute hospital 2023-03-04 01:46:00 2023-03-04 03:41:00 Emergency Nacho Barlowine [facility] 1.2.840.114 350.1.13.10 4.2.7.2.686 [id number] General acute hospital 2022-12-26 13:00:00 2022-12-26 13:00:00 Outpatient TRISH FAULKNER [facility] [id number] General acute hospital 2022-10-16 00:00:00 2022-10-16 00:00:00 Lachelle Lopez [facility] RECRUITMENT COORDINATOR [facility] 1.2.840.114 350.1.13.10 4.2.7.2.686 [id number] General acute hospital 2022-10-02 09:30:00 2022-10-02 09:30:00 Outpatient R LACHELLE ALVAREZ [facility] [id number] General acute hospital 2022-04-17 14:36:44 2022-04-17 14:36:44 Outpatient [facility] [id number] Edmond Bell 2022-01-02 13:45:00 2022-01-02 14:21:18 Outpatient R LACHLELE ALVAREZ [facility] [id number] General acute hospital 2022-01-02 13:45:00 2022-01-02 14:21:18 Office Visit Lachelle Alvarez [facility] RECRUITMENT COORDINATOR [facility] 1..840.114 350.1.13.10 4.2.7.2.686 [id number] General acute hospital 2021-12-23 00:00:00 2021-12-23 00:00:00 Madison Rene [facility] RECRUITMENT COORDINATOR [facility] 1.2.840.114 350.1.13.10 4.2.7.2.686 [id number] General acute hospital 2021-10-02 13:30:00 2021-10-02 14:42:16 Outpatient R TONY HOGUE [facility] [id number] General acute hospital 2021-10-02 13:30:00 2021-10-02 14:42:16 Office Visit Provider, Tato-Rmchp Tony Hawkins [facility] RECRUITMENT COORDINATOR [facility] 1..840.114 350.1.13.10 4.2.7.2.686 [id number] General acute hospital 2021-10-02 13:30:00 2021-10-02 14:42:16 Outpatient R TONY HOGUE [facility] [id number] General acute hospital 2021-10-02 00:00:00 2021-10-02 00:00:00 Orders Only Doctor Unassigned, [place] [facility] 1.2.840.114 350.1.13.10 4.2.7.2.686 [id number] General acute hospital 2021-08-30 02:21:00 2021-08-30 02:21:00 Outpatient JUDD_Joshua_Greg layne_ [facility] [id number] [facility] 2021-05-30 13:40:00 2021-05-30 14:02:34 Outpatient R ANIYA SANTIAGO [facility] [id number] General acute hospital 2021-05-30 13:40:00 2021-05-30 14:02:34 Office Visit Aniya Santiago [facility] 1.2.840.114 350.1.13.10 4.2.7.2.686 [id number] General acute hospital 2021-05-30 00:00:00 2021-05-30 00:00:00 Orders Only Doctor Unassigned, [place] [facility] 1.2.840.114 350.1.13.10 4.2.7.2.686 [id number] General acute hospital 2021-05-30 00:00:00 2021-05-30 00:00:00 Letter (Out) Aniya Santiago [facility] 1.2.840.114 350.1.13.10 4.2.7.2.686 [id number] General acute hospital 2020-02-02 00:00:00 2020-02-02 00:00:00 (TEL) [facility] [id number] [facility] 2020-01-15 00:00:00 2020-01-15 00:00:00 OFFICE VISIT EST PT LEVEL 3 [facility] ST[facility] [id number] [facility] 2019-12-31 00:00:00 2019-12-31 00:00:00 (TEL) STLMLC STLMLC [id number] [facility] 2019-12-23 00:00:00 2019-12-23 00:00:00 (TEL) STLMLC STLMLC [id number] [facility] 2019-12-21 00:00:00 2019-12-21 00:00:00 OFFICE VISIT NEW PT LEVEL 3 STLMLC STLMLC [id number] [facility] 2019-09-25 10:40:00 2019-09-25 10:40:00 Outpatient R [facility] [id number] General acute hospital 2019-09-25 10:12:37 2019-09-25 10:32:37 Laboratory Only Lab, Adc Fam Pob I [facility] 1.840.114 350.1.13.10 4.2.7.2.686 [id number] 2019-09-25 10:12:37 2019-09-25 10:32:37 Laboratory Only Lab, Adc Fam Pob I MariyaSummer [facility] [address] 1.2840.114 350.1.13.10 4.2.7.2.686 [id number] General acute hospital Results Test Description Test Time Test Comments Results Result Co mments Source [facility] WITH [id number] 08:42:11* Test Item Value Reference Range Interpretation [...] 33.1 g/dL 31.6-35.1 RDW-SD (test code = 45904-1) 40.1 fL 39.0-49.9 RDW-CV (test code = 788-0) 13.3 % 12.0-15.5 PLT (test code = 777-3) 331 See_Comment [Automated message] The system which generated this result transmitted reference range: 166 - 358 10*3/?L. The reference range was not used to interpret this result as normal/abnormal. MPV (test code = 38974-8) 10.9 fL 9.5-12.9 NRBC/100 WBC (test code = 4288510447) 0.0 See_Comment [Automated message] The system which generated this result transmitted reference range: 0.0 - 10.0 /100 WBCs. The reference range was not used to interpret this result as normal/abnormal. NRBC x10^3 (test code = 5223019024) See_Comment [Automated message] The system which generated this result transmitted reference range: 10*3/?L. The reference range was not used to interpret this result as normal/abnormal. GRAN MAT (NEUT) % (test code = 770-8) 90.0 % IMM GRAN % (test code = 1467043461) 0.70 % LYMPH % (test code = 736-9) 2.9 % MONO % (test code = 5905-5) 6.0 % EOS % (test code = 713-8) 0.1 % BASO % (test code = 706-2) 0.3 % GRAN MAT x10^3(ANC) (test code = 5039131805) 24.76 10*3/uL 1.88-7.09 H IMM GRAN x10^3 (test code = 6492961686) 0.20 10*3/uL 0.00-0.06 H LYMPH x10^3 (test code = 731-0) 0.80 10*3/uL 1.32-3.29 L MONO x10^3 (test code = 742-7) 1.65 10*3/uL 0.33-0.92 H EOS x10^3 (test code = 711-2) 0.04 10*3/uL 0.03-0.39 BASO x10^3 (test code = 704-7) 0.08 10*3/uL 0.01-0.07 H BANDS (test code = 1873961120) Increased A Lab Interpretation (test code = 46024-6) Abnormal [facility] [id number] 07:57:00* Test Item Value Reference Range Interpretation Comme nts POCT PREG (test code = 1605) Negative On board controls acceptable with C Line (test code = 3574) Yes POCT PREG LOT # (test code = 3575) [id number] POCT PREG TEST DATE ( test code = 3576) 06/02/2024 Lab Interpretation (test cod e = 20178-4) Normal [facility] [id number] 21:34:00* Test Item Value Reference Range Interpretation Comme nts POCT PREG (test code = 1605) Negative On board controls acceptable with C Line (test code = 3574) Yes POCT PREG LOT # (test code = 3575) POCT PREG TEST DATE ( test code = 3576) [facility] [id number] 21:34:00* Test Item Value Reference Range Interpretation Comme nts POCT PREG (test code = 1605) Negative On board controls acceptable with C Line (test code = 3574) Yes POCT PREG LOT # (test code = 3575) POCT PREG TEST DATE ( test code = 3576) [facility] [id number] 18:51:00* Test Item Value Reference Range Interpretation Comme nts POCT PREG (test code = 1605) Negative On board controls acceptable with C Line (test code = 3574) Yes POCT PREG LOT # (test code = 3575) POCT PREG TEST DATE ( test code = 3576) [facility] [id number] 18:51:00* Test Item Value Reference Range Interpretation Comme nts POCT PREG (test code = 1605) Negative On board controls acceptable with C Line (test code = 3574) Yes POCT PREG LOT # (test code = 3575) POCT PREG TEST DATE ( test code = 3576) [facility]
[2024-01-22] MEDS ORDERED: NA CHLORIDE 0.9% 1,000 ML ONE (04:25)
[2024-01-22] MEDS ORDERED: ONDANSETRON 4 MG/2 ML VIAL ONE (04:25)
[2024-01-22 05:08] LABS: Specific Gravity 1.028 (1.005-1.030)
[2024-01-22 05:09] LABS: Specific Gravity 1.029 (1.005-1.030); Urine Bacteria 20-50 /HPF (<20); Urine Bilirubin NEGATIVE (Negative); Urine Blood Negative (Negative); Urine Clarity Extremely Turbid (Clear); Urine Color Yellow (Yellow); Urine Culture Reflex Order NOT NEEDED; Urine Glucose NEGATIVE (Negative); Urine Ketones 1+ (Negative); Urine Microscopic Reflex YN ORDER UMIC; Urine Mucus 3+ /HPF (None Seen); Urine Nitrite NEGATIVE (Negative); Urine Protein TRACE (Negative); Urine RBC <5 /HPF (None Seen); Urine Urobilinogen Normal (Normal); Urine WBC <5 /HPF (<5); Urine pH 6.5 (5.0-7.0)
[2024-01-22 05:10] LABS: Absolute Eosinophils 0.1 K/uL (0-0.5); Absolute Lymphocytes (CBC) 0.8 K/uL (0.7-4.9); Absolute Monocytes 1.3 K/uL (0.1-1.3); Basophils % 0.1 % (0-1.3); Eosinophils % 0.4 % (0-4.4); Hematocrit 43.4 % (36.0-45.0); Hemoglobin 14.6 g/dL (12.0-15.0); MCHC 33.8 g/dL (32.0-36.0); MPV 8.7 fL (7.6-11.3); Monocytes % 6.3 % (3.3-12.3); Neutrophils % 89.2 % (41.7-73.7); Platelets 291 thou/uL (152-406); RBC Red Blood Cell Count 5.23 M/uL (3.86-4.86); Red Cell Distribution Width 13.9 % (12.1-15.2)
[2024-01-22 05:17] LABS: Albumin 3.5 g/dL (3.4-5.0); Anion Gap 7.8 mEq/L (5.0-15.0); Bilirubin Total 1.7 mg/dL (0.2-1.0); Globulin 3.6 g/dL (2.3-3.5); Potassium 3.8 mEq/L (3.5-5.1); Protein, Total 7.1 g/dL (6.4-8.2)
[2024-01-22 05:49] LABS: Band Neutrophils 2 % (0-1); Differential Total Cells Count 100; Eosinophils 1 % (0-3); Lymphocytes 7 % (15-42); Monocytes 3 % (0-10); Segmented Neutrophils 87 % (40-80)
[2024-01-22 05:50] LABS: Blood Morphology Comment NOT SEEN (NOT SEEN); Platelet Estimate ADEQ
--- NOTE | 2024-01-22 06:33 | EDPHYS ---
Physician Documentation [facility] Name: Taryn Azul Age: 18 yrs Sex: Female : 2005 Arrival Date: 01/22/2024 Time: 03:34 Bed 7 Private MD: Carrington Shook ED Physician Antwon Tovar HPI: 01/21 04:06 This 18 yrs old Female presents to ER via Ambulatory with complaints of ec2 Nausea/Vomiting. 04:06 Patient arrives today for evaluation of abdominal pain along with nausea and vomiting. ec2 States that she takes her weekly Wegovy injection, states that she also has [employer] tonight for dinner. Patient reports some epigastric discomfort as well as nausea. Patient reports no diarrheal symptoms. No urinary complaints. No cough and cold symptoms.. 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 - Infectious Disease History:: Denies. - Social history:: Smoking status: Patient denies any tobacco usage or history of. ROS: 04:06 Constitutional: as per hpi ec2 Exam: 04:06 Constitutional: GEN: NAD Head: atraumatic Eyes: EOMI Ears: External ears are ec2 normal. CV: Tachycardic LUNGS: no respiratory distress ABD: non-distended, soft, not guarding, not rigid, slightly tender in the epigastrium SKIN: no evidence of rashes MSK: no evidence of trauma Vital Signs: 03:57 BP 129 / 93; Pulse 101; Resp 16; Temp 98.4; Pulse Ox 100% ; Weight 108.86 kg; Height 5 dd2 ft. 8 in. ; Pain 7/10; 04:44 BP 113 / 71; Pulse 90; Resp 16; Pulse Ox 98% ; dd2 05:31 BP 119 / 75; Pulse 91; Resp 17; Temp 98.4; Pulse Ox 100% ; Pain 5/10; bm8 06:32 BP 121 / 73; Pulse 92; Resp 16; Pulse Ox 100% ; dd2 03:57 Body Mass Index 36.49 (108.86 kg, 172.72 cm) dd2 03:57 Pain Scale: Adult dd2 05:31 Pain Scale: Adult bm8 [place] Coma Score: 05:31 Eye Response: spontaneous(4). Motor Response: obeys commands(6). Verbal Response: bm8 oriented(5). Total: 15. MDM: 03:41 Medical Screening Exam initiated ec2 04:06 Data reviewed: vital signs. ED course: Patient arrives today for nausea vomiting along ec2 with epigastric abdominal discomfort. Examination remarkable for abdominal findings above as well as slight tachycardia. Will obtain lab work, urine studies. Differential includes gastroenteritis, medication reaction, gastritis, urinary tract infection, . 05:22 ED course: Patient with leukocytosis noted, on reassessment patient remains with some ec2 epigastric discomfort. Will obtain CT imaging as well.. 06:32 ED course: CT imaging shows possible enteritis. No actionable process identified. Will ec2 discharge home. Return precautions given.. 01/21 03:39 Order name: CBC with Diff; Complete Time: 05:54 ec2 01/21 03:39 Order name: CMP; Complete Time: 05:19 ec2 01/21 03:39 Order name: Lipase; Complete Time: 05:19 ec2 01/21 03:39 Order name: Test, Urine; Complete Time: 05:14 ec2 01/21 03:39 Order name: Urinalysis w/ reflexes; Complete Time: 05:14 ec2 01/21 05:18 Order name: Manual Differential; Complete Time: 05:54 EDMS 01/21 05:22 Order name: CT Abd/Pelvis - IV Contrast Only ec2 01/21 03:39 Order name: IV Saline Lock; Complete Time: 04:04 ec2 01/21 03:39 Order name: Labs collected and sent; Complete Time: 04:04 ec2 Administered Medications: 04:30 Drug: Ondansetron IVP 4 mg IVP once; over 2 minutes Route: IVP; Site: right antecubital;bm8 05:33 Follow up: Response: No adverse reaction bm8 04:30 Drug: NS 0.9% IV 1000 ml IV at 1 bolus Per protocol; to be given as a bolus over 60 bm8 minutes Route: IV; Rate: 1 bolus; Site: right antecubital; 05:33 Follow up: Response: No adverse reaction; IV Status: Completed infusion; IV Intake: bm8 1000ml Disposition Summary: 01/22/24 06:33 Discharge Ordered Notes: Location: Home ec2 Condition: Stable ec2 Diagnosis - Noninfective gastroenteritis and colitis, unspecified ec2 Followup: ec2 - With: Carrington Shook DO - When: - Reason: Recheck today's complaints Discharge Instructions: - Discharge Summary Sheet ec2 - Viral Gastroenteritis, Adult, [id number] ec2 Forms: - Medication Reconciliation Form ec2 - Antibiotic Education ec2 - Prescription Opioid Use ec2 - Patient Portal Instructions ec2 - Leadership Thank You Letter ec2 - Work release form bm8 Prescriptions: - Zofran 4 mg Oral Tablet - take 1 tablet ORAL route every 12 hours As needed; 20 tablet; Refills: 0, ec2 Product Selection Permitted - dicyclomine 10 mg Oral capsule - take 1 capsule ORAL route 3 times per day; 20 capsule; Refills: 0, Product ec2 Selection Permitted Signatures: Dispatcher [employer] Antwon Cano MD MD ec2 Umer Hemphill RN RN bm8 JORGE MAYFIELD RN RN dd2 Corrections: (The following items were deleted from the chart) 03:40 03:40 CBC+H.LAB.BRZ ordered. EDMS EDMS 03:40 03:40 COMPREHENSIVE METABOLIC PANEL+C.LAB.BRZ ordered. EDMS EDMS 03:40 03:40 LIPASE+C.LAB.BRZ ordered. EDMS EDMS 03:40 03:40 Test, Urine+UC.LAB.BRZ ordered. EDMS EDMS 03:40 03:40 Urinalysis+U.LAB.BRZ ordered. EDMS EDMS
--- NOTE | 2024-01-22 06:33 | ER ---
Nurse's Notes [facility] Name: Taryn Azul Age: 18 yrs Sex: Female : 2005 Arrival Date: 01/22/2024 Time: 03:34 Bed 7 Private MD: Carrington Shook Diagnosis: Noninfective gastroenteritis and colitis, unspecified Presentation: 01/21 03:57 Chief complaint: Chief complaint: Patient states: PT STATES ATE [employer] E[employer] THIS dd2 AFTERNOON, WENT TO CLASS AND BEGAN VOMITING AT 8 PM AND HAS VOMITED MULTIPLE TIMES. 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 03:57 Coronavirus screen: At this time, the client does not indicate any symptoms associated dd2 with coronavirus-19. Ebola Screen: No symptoms or risks identified at this time. Initial Sepsis Screen: Does the patient meet any 2 criteria? No. Patient's initial sepsis screen is negative. Does the patient have a suspected source of infection? No. Patient's initial sepsis screen is negative. Risk Assessment: Do you want to hurt yourself or someone else? Patient reports no desire to harm self or others. Onset of symptoms was January 21, 2024. 03:57 Method Of Arrival: Ambulatory dd2 03:57 Acuity: ROMERO 3 dd2 Triage Assessment: 04:02 General: Appears in no apparent distress. Behavior is calm, cooperative, appropriate dd2 for age. Pain: Complains of pain in epigastric area Pain currently is 7 out of 10 on a pain scale. EENT: No deficits noted. No signs and/or symptoms were reported regarding the EENT system. Neuro: No deficits noted. Level of Consciousness is awake, alert, obeys commands, Oriented to person, place, time, situation, Appropriate for age. Cardiovascular: No deficits noted. Patient's skin is warm and dry. Respiratory: No deficits noted. Airway is patent Respiratory effort is even, unlabored, Respiratory pattern is regular, symmetrical. GI: Abdomen is non-distended, Abdomen is tender to palpation in epigastric area Reports nausea, vomiting. : No signs and/or symptoms were reported regarding the genitourinary system. Derm: No deficits noted. No signs and/or symptoms reported regarding the dermatologic system. Musculoskeletal: No deficits noted. No signs and/or symptoms reported regarding the musculoskeletal system. Circulation, motion, and sensation intact. Range of motion: intact in all extremities. 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 - Infectious Disease History:: Denies. - Social history:: Smoking status: Patient denies any tobacco usage or history of. Screenin:08 [facility] ED Fall Risk Assessment (Adult) History of falling in the last 3 months, dd2 including since admission No falls in past 3 months (0 pts) Confusion or Disorientation No (0 pts) Intoxicated or Sedated No (0 pts) Impaired Gait No (0 pts) Mobility Assist Device Used No (0 pt) Altered Elimination No (0 pt) Score/Fall Risk Level 0 - 2 = Low Risk Oriented to surroundings, Maintained a safe environment, Educated pt \T\ family on fall prevention, incl call for assistance when getting out of bed, Assessed \T\ reinforced patient's understanding of fall precautions, Hourly rounding (assess needs \T\ fall precautionary measures) done. Abuse screen: Denies threats or abuse. Nutritional screening: No deficits noted. Tuberculosis screening: No symptoms or risk factors identified. Assessment: 04:08 Reassessment: SEE TRIAGE FOR FULL ASSESSMENT. dd2 05:31 Reassessment: Patient appears in no apparent distress at this time. Patient and/or bm8 family updated on plan of care and expected duration. Pain level reassessed. Patient is alert, oriented x 3, equal unlabored respirations, skin warm/dry/pink. Patient states feeling better. Patient states symptoms have improved. GI: Abdomen is round non-distended, Bowel sounds present X 4 quads. Reports upper abdominal pain, Pain is 5 out of 10 on a pain scale. 06:38 Reassessment: Patient appears in no apparent distress at this time. Patient and/or bm8 family updated on plan of care and expected duration. Pain level reassessed. Patient is alert, oriented x 3, equal unlabored respirations, skin warm/dry/pink. Patient denies pain at this time. Patient states feeling better. Patient states symptoms have improved. Vital Signs: 03:57 BP 129 / 93; Pulse 101; Resp 16; Temp 98.4; Pulse Ox 100% ; Weight 108.86 kg; Height 5 dd2 ft. 8 in. ; Pain 7/10; 04:44 BP 113 / 71; Pulse 90; Resp 16; Pulse Ox 98% ; dd2 05:31 BP 119 / 75; Pulse 91; Resp 17; Temp 98.4; Pulse Ox 100% ; Pain 5/10; bm8 06:32 BP 121 / 73; Pulse 92; Resp 16; Pulse Ox 100% ; dd2 03:57 Body Mass Index 36.49 (108.86 kg, 172.72 cm) dd2 03:57 Pain Scale: Adult dd2 05:31 Pain Scale: Adult bm8 Nishant Coma Score: 05:31 Eye Response: spontaneous(4). Motor Response: obeys commands(6). Verbal Response: bm8 oriented(5). Total: 15. ED Course: 03:37 Patient arrived in ED. gm2 03:38 Carrington Shook DO is Private Physician. gm2 03:39 Antwon Tovar MD is Attending Physician. ec2 03:40 JORGE MAYFIELD RN is Primary Nurse. dd2 04:02 Triage completed. dd2 04:02 Arm band placed on right wrist. Patient placed in an exam room, on a stretcher, on dd2 pulse oximetry. 04:04 Inserted saline lock: 20 gauge in right antecubital area, using aseptic technique. dd2 Blood collected. Flushed with 10 mL NS. 04:08 No provider procedures requiring assistance completed. Initial lab(s) drawn, by ED dd2 staff, sent to lab. Urine collected: clean catch specimen, cloudy. Patient maintains SpO2 saturation greater than 95% on room air. 04:08 Patient has correct armband on for positive identification. Bed in low position. Call dd2 light in reach. Provided Education on: CALL LIGHT, LABS, MEDICATION. Client placed on continuous cardiac and pulse oximetry monitoring. NIBP monitoring applied. Door closed. Noise minimized. Warm blanket given. Pillow given. Verbal reassurance given. 05:58 CT Abd/Pelvis - IV Contrast Only In Process Unspecified. EDMS 06:33 Carrington Shook DO is Referral Physician. ec2 06:38 IV discontinued, intact, bleeding controlled, No redness/swelling at site. Pressure bm8 dressing applied. Administered Medications: 04:30 Drug: Ondansetron IVP 4 mg IVP once; over 2 minutes Route: IVP; Site: right antecubital;bm8 05:33 Follow up: Response: No adverse reaction bm8 04:30 Drug: NS 0.9% IV 1000 ml IV at 1 bolus Per protocol; to be given as a bolus over 60 bm8 minutes Route: IV; Rate: 1 bolus; Site: right antecubital; 05:33 Follow up: Response: No adverse reaction; IV Status: Completed infusion; IV Intake: bm8 1000ml Medication: 04:08 VIS not applicable for this client. dd2 Intake: 05:33 IV: 1000ml; Total: 1000ml. bm8 Outcome: 06:33 Discharge ordered by . ec2 06:38 Discharged to home ambulatory, bm8 06:38 Condition: stable 06:38 Discharge instructions given to patient, family, Instructed on discharge instructions, follow up and referral plans. no drinking with medication, no driving heavy equipment, medication usage, safety practices, Demonstrated understanding of instructions, follow-up care, medications, Prescriptions given X 2, 06:39 Patient left the ED. bm8 Signatures: Dispatcher [employer] EDMS Antwon Tovar MD MD ec2 Niurka Mcdaniel 2 Umer Hemphill RN RN bm8 JORGE MAYFIELD RN RN dd2 Corrections: (The following items were deleted from the chart) 04:02 03:57 Chief complaint: dd2 dd2
[2024-01-22 07:03] VITALS: TEMP 98.4
[2024-01-22 07:05] VITALS: O2SAT 100
[2024-01-22 07:06] VITALS: BP 121/73
--- NOTE | 2024-01-22 07:16 | RAD REPORT ---
CT abdomen and pelvis with contrast TECHNIQUE: Axial images were taken through the abdomen and pelvis after the administration of IV cont rast. All CT scans at this facility use dose modulation, iterative reconstruction, and/or weight based dosing when appropriate to reduce radiation dose to as low as reasonably achievable HISTORY: ABD PAIN COMPARISON: one FINDINGS: Lung bases: The lung bases appear unremarkable. ABDOMEN: The liver appears unremarkable. There is no evidence for mass or intrahepatic biliary ductal dilatati on. The gallbladder appears unremarkable. There is no evidence for gallbladder wall thickening or pericholecystic fluid. The adrenal glands are normal. The pancreas is normal without ductal dilatatio n. The spleen is normal. Right lower pole hypodensity is too small to further characterize. There is no evidence for hydronephrosis or stone. There are distended and fluid-filled loops of jejunum with possible mild wall thickening. No evidence for obstruction. The appendix is identified and is normal. Pelvis: The aorta is normal in caliber. There is no evidence for pathologically enlarged adenopathy. The bladder appears unremarkable. There is no free air or free fluidThe uterus and adnexa are unremar kable. The soft tissues and osseous structures are normal. Impression: Findings may represent enteritis. No significant findings otherwise. Electronically signed by: Rudy David MD 01/22/2024 06:26 AM CDT Due to temporary technical issues with the PACS/boosk reporting system, reports are being danish d by the in-house radiologist without review as a courtesy to ensure prompt reporting the interpreting radiologist is fully responsible for the content of the report. Transcribed Date/Time: 01/22/2024 7:16 AM
== END 2024-01-22 06:39 | disposition home or self-care (01) ==
LOC: ER 03:34
DX: K52.9 Noninfective gastroenteritis and colitis, unspecified (principal)
CPT/HCPCS: 85025; 81001; 36415; 81025; 83690; 80053; 74177; Q9967; J2405; J7030; 96361; 96374; 99284